=== PATIENT | female | born 1975 | race Caucasian/White ===

== ENCOUNTER 2017-01-07 13:40 | Observation (INO) | payer MEDICARE, MEDICAID ==
[~2017-01-07] VITALS: Ht 172.7 cm; Wt 61.2 kg
[2017-01-07] MEDS ORDERED: SODIUM CHLORIDE 0.9% 1,000 ML IVB ONE (15:40)
[2017-01-07 15:57] LABS: Basophils # (auto) 0 uL; Basophils % (auto) 0.2 % (0.0-2.0); Eosinophils # (auto) 0.1 uL; Eosinophils % (auto) 2.2 % (0.0-7.0); Hematocrit 38.5 % (36.0-46.0); Lymphocytes # (auto) 1.3 uL; Lymphocytes % (auto) 24.5 % (10.0-50.0); Mean Corpuscular Hemoglobin 31.5 pg (28.0-32.0); Mean Corpuscular Hgb Conc. 33.8 g/dL (32.0-36.0); Monocytes # (auto) 0.3 uL; Monocytes % (auto) 5.4 % (0.0-12.0); Neutrophils # (auto) 3.7 uL; Neutrophils % (auto) 67.7 % (37.0-80.0); Platelet Count (auto) 288 10^3/uL (140-450); Red Cell Distribution Width 13.9 % (11.6-16.0); White Blood Cell 5.5 10^3/uL (4.4-10.8)
[2017-01-07 16:32] LABS: Albumin 3.1 g/dL (3.4-5.0); BUN/Creatinine Ratio 14.7; Bilirubin, Total 0.2 mg/dL (0.2-1.0); Calcium 8.4 mg/dL (8.5-10.1); Magnesium 2.2 mg/dL (1.6-2.6); Potassium 3.1 mmol/L (3.5-5.1); Total Protein 7.4 g/dL (6.4-8.2)
[2017-01-07 18:00] LABS: Urine Bilirubin Negative (Negative); Urine Blood Negative /uL (Negative); Urine Color Yellow (Yellow); Urine Glucose Normal (Normal); Urine Ketone Negative (Negative); Urine Nitrite Negative (Negative); Urine RBC 3 /hpf (0 - 4); Urine Urobilinogen Normal (Negative); Urine WBC Clumps PRESENT /hpf (None Seen)
[2017-01-07] MEDS ORDERED: cefTRIAXone 1GM/50ML D5W 50 ML IV ONE (18:30)
[2017-01-07] MEDS ORDERED: ONDANSETRON HCL 4 MG/2 ML VIAL IV ONE (18:45)
[2017-01-07] MEDS ORDERED: HYDROmorphone HCL 2 MG/ML VL IV ONE (18:45)
[2017-01-07] MEDS ORDERED: diphenhdrAMINE HCL 50 MG/1 ML VL IV ONE (23:00)
[2017-01-07] MEDS ORDERED: HALOPERIDOL LACTATE 5 MG/ML INJ VIAL IM ONE (23:00)
[2017-01-07] MEDS ORDERED: LORazepam 2MG/ML-1ML VIAL IV ONE (23:00)
[2017-01-08 08:39] VITALS: BP 120/86
== END 2017-01-08 09:13 | disposition home or self-care (01) | DRG 914 ==
LOC: ER 13:40 → OVERFLOW 15:42 → ER 01-08 09:13
PROVIDERS: ADMIT Emergency Medicine; ATTEND Emergency Medicine
DX: T14.91 Suicide attempt (principal); N39.0 Urinary tract infection, site not specified; E44.1 Mild protein-calorie malnutrition; R41.82 Altered mental status, unspecified; F10.10 Alcohol abuse, uncomplicated; G89.4 Chronic pain syndrome; E87.6 Hypokalemia; E03.9 Hypothyroidism, unspecified
CPT/HCPCS: 36415; 70450; 71010; 80053; 80307; 80320; 81001; 83735; 84443; 85025; 93005; 96365; 96372; 96375; 99285; G0378; J0696; J1170; J1200; J1630; J2060; J2405; J7030

== ENCOUNTER 2017-04-12 22:04 | Emergency (ER) | payer OTHER, MEDICAID ==
[~2017-04-12] VITALS: Ht 177.8 cm; Wt 73.0 kg
[2017-04-12 22:25] VITALS: BP 134/87
[2017-04-13] MEDS ORDERED: OXYCODONE W/ ACETAMINOPHEN 5/325MG TABLET PO ONE (02:15)
== END 2017-04-13 02:56 | disposition home or self-care (01) ==
LOC: ER 22:19
DX: S92.351A Displaced fracture of fifth metatarsal bone, right foot, initial encounter for closed fracture (principal); S82.491A Other fracture of shaft of right fibula, initial encounter for closed fracture; Z88.8 Allergy status to other drugs, medicaments and biological substances; Z91.040 Latex allergy status; W19.XXXA Unspecified fall, initial encounter; Y93.89 Activity, other specified; Y99.8 Other external cause status; Y92.89 Other specified places as the place of occurrence of the external cause
CPT/HCPCS: 29515; 73600; 73620

== ENCOUNTER 2017-11-21 15:04 | Emergency (ER) | payer MEDICARE, MEDICAID ==
[~2017-11-21] VITALS: Ht 182.9 cm; Wt 72.6 kg
[2017-11-21] MEDS ORDERED: SODIUM CHLORIDE 0.9% 500 ML IVB ONE (15:37)
[2017-11-21] MEDS ORDERED: LORazepam 2MG/ML-1ML VIAL IV ONE (15:45)
[2017-11-21 16:04] LABS: Basophils # (auto) 0 uL; Basophils % (auto) 0.1 % (0.0-2.0); Eosinophils # (auto) 0.1 uL; Eosinophils % (auto) 3.1 % (0.0-7.0); Hematocrit 37.4 % (36.0-46.0); Hemoglobin 12.7 g/dL (12.2-16.2); Lymphocytes # (auto) 1.4 uL; Lymphocytes % (auto) 42.2 % (10.0-50.0); Mean Corpuscular Hemoglobin 33.8 pg (28.0-32.0); Mean Corpuscular Volume 99.5 fL (80.0-100.0); Monocytes # (auto) 0.3 uL; Monocytes % (auto) 8.6 % (0.0-12.0); Neutrophils # (auto) 1.6 uL; Platelet Count (auto) 158 10^3/uL (140-450); Red Blood Cells 3.75 10^6/uL (4.0-5.20); Red Cell Distribution Width 13.3 % (11.8-14.3); White Blood Cell 3.4 10^3/uL (4.4-10.8)
[2017-11-21 16:21] LABS: Albumin 3.6 g/dL (3.4-5.0); BUN/Creatinine Ratio 13.1; Bilirubin, Total 0.4 mg/dL (0.2-1.0); Potassium 3.8 mmol/L (3.5-5.1); Total Protein 7.5 g/dL (6.4-8.2)
[2017-11-21 16:55] LABS: Blood Alcohol < 3.0 mg/dL (0-5)
[2017-11-21] MEDS ORDERED: ASPI325T4 PO (22:38)
[2017-11-21] MEDS ORDERED: POTA10TA51 PO (22:38)
[2017-11-21] MEDS ORDERED: HYDR50TA69 PO (22:38)
[2017-11-21] MEDS ORDERED: LEVO200I5 IV (22:38)
[2017-11-21] MEDS ORDERED: FOLI1TAB6 PO (22:38)
[2017-11-21] MEDS ORDERED: LANS30CA63 PO (22:38)
[2017-11-21] MEDS ORDERED: FERR1TAB36 PO (22:38)
[2017-11-21] MEDS ORDERED: FLUT0.05 NAS (22:38)
[2017-11-21] MEDS ORDERED: HYDR200T OR (22:38)
[2017-11-21] MEDS ORDERED: ARTISOL13 EACHEYE (22:38)
[2017-11-22] MEDS ORDERED: MORPHINE SULFATE 4 MG/ML SYR/VIAL IV PRN (01:00)
[2017-11-22] MEDS ORDERED: ACETAMINOPHEN 500 MG TAB PO PRN (01:00)
[2017-11-22] MEDS ORDERED: HYDROcodone-ACET 5/325MG TAB PO PRN (01:00)
[2017-11-22] MEDS ORDERED: LORazepam 0.5 MG TAB PO PRN ×2 (01:00→03:15)
[2017-11-22 01:10] VITALS: BP 113/67
[2017-11-22] MEDS ORDERED: LEVOTHYROXINE SODIUM 50 MCG TAB PO SCH (07:00)
[2017-11-22] MEDS ORDERED: MONTELUKAST SODIUM 10 MG TAB PO SCH (22:00)
[2017-11-22] MEDS ORDERED: AMITRIPTYLINE HCL 25 MG TAB PO SCH (22:00)
== END 2017-11-22 02:27 | disposition left against medical advice (07) ==
LOC: ER 15:04 → EDBD 15:04 → UNDOADMIN 15:05 → OVERFLOW 15:05 → ER 11-22 02:27
DX: R41.82 Altered mental status, unspecified (principal); G89.4 Chronic pain syndrome; G93.2 Benign intracranial hypertension; F17.210 Nicotine dependence, cigarettes, uncomplicated; J44.9 Chronic obstructive pulmonary disease, unspecified; Z88.6 Allergy status to analgesic agent; Z91.040 Latex allergy status
CPT/HCPCS: 36415; 70450; 71045; 80053; 80320; 83735; 85025; 93005; 94761; 96361; 96374; 99285; J2060; J7030

== ENCOUNTER 2021-03-02 16:32 | Inpatient (IN) | payer MEDICARE, MEDICAID ==
[~2021-03-02] VITALS: Ht 154.9 cm; Wt 81.4 kg
[~2021-03-02 16:32] MED LIST: ARTISOL13 EACHEYE; ASPI325T4 PO; FERR1TAB36 PO; FLUT0.05 NAS; FOLI1TAB6 PO; HYDR-4188 OR; HYDR50TA69 PO; LANS30CA57 PO; LEVO200I5 IV; POTA10TA51 PO
[2021-03-02] MEDS ORDERED: LORazepam 2MG/ML-1ML VIAL IV ONE (16:45)
[2021-03-02] MEDS ORDERED: SODIUM CHLORIDE 0.9% 1,000 ML IV ONE ×2 (18:00)
[2021-03-02 18:48] LABS: Basophils # (auto) 0 10 ^3/uL (0-0.2); Basophils % (auto) 0.2 % (0.0-2.0); Eosinophils # (auto) 0 10 ^3/uL (0-0.8); Eosinophils % (auto) 0.3 % (0.0-7.0); Hematocrit 29.7 % (36.0-46.0); Hemoglobin 9.9 g/dL (12.2-16.2); Lymphocytes # (auto) 0.7 10 ^3/uL (0.4-5.4); Lymphocytes % (auto) 5.7 % (10.0-50.0); Mean Corpuscular Hemoglobin 31.9 pg (28.0-32.0); Mean Corpuscular Hgb Conc. 33.4 g/dL (32.0-36.0); Mean Corpuscular Volume 95.5 fL (80.0-100.0); Monocytes # (auto) 0.9 10 ^3/uL (0-1.3); Monocytes % (auto) 6.9 % (0.0-12.0); Neutrophils # (auto) 11.2 10 ^3/uL (1.6-8.6); Neutrophils % (auto) 86.9 % (37.0-80.0); Nucleated Red Blood Cells % 0.1 %; Red Cell Distribution Width 17.9 % (11.8-14.3); White Blood Cell 12.9 10^3/uL (4.4-10.8)
[2021-03-02 19:04] LABS: Albumin 2.6 g/dL (3.4-5.0); Anion Gap 7 (5-15); Blood Urea Nitrogen 12 mg/dL (7-18); Calcium 7.5 mg/dL (8.5-10.1); Carbon Dioxide 26 mmol/L (21-32); Chloride 102 mmol/L (98-107); Glucose 84 mg/dL (74-106); Sodium 135 mmol/L (136-145)
[2021-03-02 19:09] LABS: Alanine Aminotransferase 59 U/L (13-56); Alkaline Phosphatase 84 U/L (45-117); Aspartate Aminotransferase 130 U/L (15-37); BUN/Creatinine Ratio 16.9; Bilirubin, Total 0.8 mg/dL (0.2-1.0); GFR African American 114 mL/min; GFR Non-African American 94 mL/min; Total Protein 6.2 g/dL (6.4-8.2)
[2021-03-02] MEDS ORDERED: ACETAMINOPHEN 325 MG TAB PO ONE (20:15)
[2021-03-02] MEDS ORDERED: POTASSIUM CHL 20MEQ/100ML 100 ML IV STA (20:22)
[2021-03-02] MEDS ORDERED: ONDANSETRON HCL 4 MG/2 ML VIAL IV ONE (20:30)
[2021-03-02] MEDS ORDERED: cefTRIAXone 1GM/50ML D5W 50 ML IV ONE (20:30)
[2021-03-02] MEDS ORDERED: MORPHINE SULF INJ 2 MG/ML SYRINGE 1ML IV ONE (20:30)
[2021-03-02] MEDS ORDERED: VANCOMYCIN 1GM/250ML 250 ML IV ONE (20:30)
[2021-03-02] MEDS ORDERED: LACTATED RINGER'S 1,000 ML IV ONE (21:00)
[2021-03-02] MEDS: POTASSIUM CHL 20MEQ/100ML 100 ML IV SCH ×2 (21:22→23:15)
[2021-03-02] MEDS ORDERED: ONDANSETRON HCL 4 MG/2 ML VIAL IV PRN (21:45)
[2021-03-02] MEDS ORDERED: CALCIUM GLUC 1,000mg/50ml-NS 50 ML IV ONE (21:45)
[2021-03-02] MEDS ORDERED: ACETAMINOPHEN 325 MG TAB PO PRN (21:45)
[2021-03-02] MEDS ORDERED: NITROGLYCERIN 0.4 MG SL TAB SL PRN (21:45)
[2021-03-02] MEDS ORDERED: MORPHINE SULF INJ 2 MG/ML SYRINGE 1ML IV PRN (21:45)
[2021-03-02] MEDS ORDERED: ALBUTEROL SULF 2.5 MG/0.5ML(0.5%) NEB SOLN NEB PRN (21:45)
[2021-03-02] MEDS ORDERED: ALBUMIN 5% 250 ML IV ONE (21:45)
[2021-03-02 23:09] VITALS: BP 103/61
[2021-03-03] VITALS (7 sets, daily range): BP systolic 101–135; BP diastolic 62–89
[2021-03-03 00:22] LABS: Urine Bacteria FEW /hpf (None Seen); Urine Blood Negative /uL (Negative); Urine Specific Gravity 1.007 (1.001-1.035); Urine WBC 8 /hpf (0 - 5)
[2021-03-03 00:41] LABS: Amphetamine Screen, Urine NEGATIVE (NEGATIVE); Barbiturate Scree,Urine NEGATIVE (NEGATIVE); Benzodiazephine Screen, Urine NEGATIVE (NEGATIVE); Cannabinoid Screen, Urine NEGATIVE (NEGATIVE); Cocaine Screen, Urine NEGATIVE (NEGATIVE); Phencyclidine Screen, Urine NEGATIVE (NEGATIVE)
[2021-03-03 00:49] LABS: Opiate Scree,Urine POSITIVE (NEGATIVE)
[2021-03-03] MEDS: SODIUM CHLORIDE 0.9% 1,000 ML IV SCH ×3 (01:10→13:20)
[2021-03-03] MEDS: CLINDAMYCIN 600MG IV 50 ML IV SCH ×4 (06:00→22:08)
[2021-03-03] MEDS: LEVOTHYROXINE SODIUM 50 MCG TAB PO SCH (06:01)
[2021-03-03 06:11] LABS: Basophils # (auto) 0 10 ^3/uL (0-0.2); Eosinophils # (auto) 0.1 10 ^3/uL (0-0.8); Eosinophils % (auto) 0.7 % (0.0-7.0); Hematocrit 31.5 % (36.0-46.0); Hemoglobin 10.5 g/dL (12.2-16.2); Lymphocytes # (auto) 0.6 10 ^3/uL (0.4-5.4); Lymphocytes % (auto) 5.1 % (10.0-50.0); Mean Corpuscular Hemoglobin 31.6 pg (28.0-32.0); Mean Corpuscular Hgb Conc. 33.2 g/dL (32.0-36.0); Mean Corpuscular Volume 95.3 fL (80.0-100.0); Monocytes # (auto) 0.8 10 ^3/uL (0-1.3); Monocytes % (auto) 6.3 % (0.0-12.0); Neutrophils # (auto) 10.4 10 ^3/uL (1.6-8.6); Neutrophils % (auto) 87.9 % (37.0-80.0); Red Blood Cells 3.31 10^6/uL (4.0-5.20); Red Cell Distribution Width 17.5 % (11.8-14.3); White Blood Cell 11.9 10^3/uL (4.4-10.8)
[2021-03-03 06:37] LABS: Potassium 3.3 mmol/L (3.5-5.1)
[2021-03-03 06:44] LABS: BUN/Creatinine Ratio 17.7; Calcium 7.7 mg/dL (8.5-10.1)
[2021-03-03] MEDS: PANTOPRAZOLE 40 MG TAB PO SCH ×3 (09:28→11:48)
[2021-03-03] MEDS: ENOXAPARIN SOD 40 MG/0.4 ML SYRINGE SC SCH (09:28)
[2021-03-03] MEDS ORDERED: POTASSIUM CHL 20 Meq TABLET PO ONE (10:30)
[2021-03-03] MEDS ORDERED: MORPHINE SULF INJ 2 MG/ML SYRINGE 1ML IV ONE (11:30)
[2021-03-03] MEDS ORDERED: MORPHINE SULF 30 mg ER tab PO ONE (13:00)
[2021-03-03] MEDS ORDERED: ERTAPENEM SOD INJ 1 GM in SODIUM CHL 0.9% 50 ML IV ONE (13:30)
[2021-03-03] MEDS: TEMAZEPAM 15 MG CAP PO PRN (20:36)
[2021-03-03] MEDS ORDERED: cefTRIAXone 1GM/50ML D5W 50 ML IV SCH (21:00)
[2021-03-03] MEDS: MORPHINE SULF 30 mg ER tab PO SCH (22:08)
[2021-03-04] MEDS: SODIUM CHLORIDE 0.9% 1,000 ML IV SCH ×2 (00:25→05:03)
[2021-03-04 05:01] VITALS: BP 97/65
[2021-03-04 05:48] LABS: Basophils # (auto) 0 10 ^3/uL (0-0.2); Basophils % (auto) 0.1 % (0.0-2.0); Eosinophils # (auto) 0.2 10 ^3/uL (0-0.8); Eosinophils % (auto) 2.1 % (0.0-7.0); Hematocrit 30.3 % (36.0-46.0); Hemoglobin 10.2 g/dL (12.2-16.2); Lymphocytes # (auto) 0.9 10 ^3/uL (0.4-5.4); Lymphocytes % (auto) 11.2 % (10.0-50.0); Mean Corpuscular Hemoglobin 32.4 pg (28.0-32.0); Mean Corpuscular Hgb Conc. 33.6 g/dL (32.0-36.0); Mean Corpuscular Volume 96.5 fL (80.0-100.0); Monocytes # (auto) 0.4 10 ^3/uL (0-1.3); Monocytes % (auto) 5.5 % (0.0-12.0); Neutrophils # (auto) 6.6 10 ^3/uL (1.6-8.6); Neutrophils % (auto) 81.1 % (37.0-80.0); Red Blood Cells 3.14 10^6/uL (4.0-5.20); Red Cell Distribution Width 17.5 % (11.8-14.3); White Blood Cell 8.1 10^3/uL (4.4-10.8)
[2021-03-04] MEDS: CLINDAMYCIN 600MG IV 50 ML IV SCH ×3 (05:59→22:53)
[2021-03-04 06:08] LABS: Albumin 2.5 g/dL (3.4-5.0); Calcium 8.2 mg/dL (8.5-10.1); Magnesium 2.3 mg/dL (1.6-2.6); Potassium 3.6 mmol/L (3.5-5.1)
[2021-03-04 06:13] LABS: BUN/Creatinine Ratio 16.1; Bilirubin, Total 0.4 mg/dL (0.2-1.0); Total Protein 6.5 g/dL (6.4-8.2)
[2021-03-04] MEDS: LEVOTHYROXINE SODIUM 50 MCG TAB PO SCH (06:50)
[2021-03-04 09:00] VITALS: BP 106/76
[2021-03-04] MEDS ORDERED: ERTAPENEM SOD INJ 1 GM in SODIUM CHL 0.9% 50 ML IV SCH (10:00)
[2021-03-04] MEDS: MORPHINE SULF 30 mg ER tab PO SCH ×2 (10:10→23:58)
[2021-03-04] MEDS: ENOXAPARIN SOD 40 MG/0.4 ML SYRINGE SC SCH (10:10)
[2021-03-04 13:00] VITALS: BP 96/68
[2021-03-04] MEDS ORDERED: GADOTERATE MEG 10 MMOL/20ml INJ (0.5MMOL/ml) IV ONE (15:21)
[2021-03-04 17:28] VITALS: BP 101/73
[2021-03-04] MEDS: HYDROmorphone HCL 2 MG/ML VL IV PRN ×2 (18:38→21:45)
[2021-03-04] MEDS: CEFEPIME 1 GM in SODIUM CHL 0.9% 50 ML IV SCH (21:36)
[2021-03-04] MEDS: GABAPENTIN 300 MG CAP PO SCH (21:36)
[2021-03-04 22:00] VITALS: BP 118/73
[2021-03-05] VITALS (7 sets, daily range): BP systolic 93–144; BP diastolic 61–73
[2021-03-05] MEDS: HYDROmorphone HCL 2 MG/ML VL IV PRN ×4 (04:32→23:39)
[2021-03-05] MEDS: CLINDAMYCIN 600MG IV 50 ML IV SCH (04:54)
[2021-03-05] MEDS: GABAPENTIN 300 MG CAP PO SCH ×3 (06:17→21:38)
[2021-03-05] MEDS: CEFEPIME 1 GM in SODIUM CHL 0.9% 50 ML IV SCH (06:23)
[2021-03-05 06:29] LABS: Basophils # (auto) 0 10 ^3/uL (0-0.2); Basophils % (auto) 0.3 % (0.0-2.0); Eosinophils # (auto) 0.1 10 ^3/uL (0-0.8); Eosinophils % (auto) 2.2 % (0.0-7.0); Hematocrit 30.9 % (36.0-46.0); Hemoglobin 10.5 g/dL (12.2-16.2); Lymphocytes # (auto) 0.7 10 ^3/uL (0.4-5.4); Lymphocytes % (auto) 11.8 % (10.0-50.0); Mean Corpuscular Hemoglobin 32.4 pg (28.0-32.0); Mean Corpuscular Volume 95.4 fL (80.0-100.0); Monocytes # (auto) 0.6 10 ^3/uL (0-1.3); Monocytes % (auto) 9.6 % (0.0-12.0); Neutrophils # (auto) 4.4 10 ^3/uL (1.6-8.6); Neutrophils % (auto) 76.1 % (37.0-80.0); Red Blood Cells 3.23 10^6/uL (4.0-5.20); Red Cell Distribution Width 17.5 % (11.8-14.3); White Blood Cell 5.8 10^3/uL (4.4-10.8)
[2021-03-05] MEDS: LEVOTHYROXINE SODIUM 50 MCG TAB PO SCH (07:00)
[2021-03-05 07:06] LABS: Albumin 2.5 g/dL (3.4-5.0); Calcium 7.7 mg/dL (8.5-10.1); Magnesium 2.2 mg/dL (1.6-2.6); Potassium 3.6 mmol/L (3.5-5.1)
[2021-03-05 07:15] LABS: BUN/Creatinine Ratio 16.7; Bilirubin, Total 0.5 mg/dL (0.2-1.0); CRP High Sensitivity 9.45 mg/dL (< 0.3); Phosphorus 1.2 mg/dL (2.5-4.90); Total Protein 6.4 g/dL (6.4-8.2)
[2021-03-05] MEDS: AMPICILLIN & SULBACTAM SODIUM 3 GM in SODIUM CHL 0.9% 100 ML IV SCH ×3 (08:57→21:38)
[2021-03-05] MEDS: ENOXAPARIN SOD 40 MG/0.4 ML SYRINGE SC SCH (10:37)
[2021-03-05] MEDS: PANTOPRAZOLE 40 MG TAB PO SCH (10:37)
[2021-03-05] MEDS: MORPHINE SULF 30 mg ER tab PO SCH ×2 (10:37→21:38)
[2021-03-05] MEDS ORDERED: LORazepam 0.5 MG TAB PO ONE (12:30)
[2021-03-05] MEDS: HYDROcodone-ACET 10/325MG TAB PO PRN (18:04)
[2021-03-06] VITALS (7 sets, daily range): BP systolic 102–133; BP diastolic 65–92
[2021-03-06] MEDS: AMPICILLIN & SULBACTAM SODIUM 3 GM in SODIUM CHL 0.9% 100 ML IV SCH ×4 (03:17→21:03)
[2021-03-06] MEDS: HYDROmorphone HCL 2 MG/ML VL IV PRN ×5 (04:42→21:49)
[2021-03-06] MEDS: GABAPENTIN 300 MG CAP PO SCH ×3 (06:20→21:35)
[2021-03-06] MEDS: LEVOTHYROXINE SODIUM 50 MCG TAB PO SCH (06:21)
[2021-03-06] MEDS: PANTOPRAZOLE 40 MG TAB PO SCH (10:15)
[2021-03-06] MEDS: MORPHINE SULF 30 mg ER tab PO SCH (10:15)
[2021-03-06] MEDS: ENOXAPARIN SOD 40 MG/0.4 ML SYRINGE SC SCH (10:15)
[2021-03-06] MEDS: HYDROcodone-ACET 10/325MG TAB PO PRN (15:15)
[2021-03-07] VITALS (7 sets, daily range): BP systolic 101–136; BP diastolic 67–86
[2021-03-07] MEDS: MORPHINE SULF 30 mg ER tab PO SCH ×3 (02:55→21:35)
[2021-03-07] MEDS: AMPICILLIN & SULBACTAM SODIUM 3 GM in SODIUM CHL 0.9% 100 ML IV SCH ×4 (03:05→21:35)
[2021-03-07] MEDS: GABAPENTIN 300 MG CAP PO SCH ×3 (06:16→21:35)
[2021-03-07] MEDS: LEVOTHYROXINE SODIUM 50 MCG TAB PO SCH (06:16)
[2021-03-07] MEDS: HYDROmorphone HCL 2 MG/ML VL IV PRN ×6 (06:22→21:37)
[2021-03-07] MEDS: ENOXAPARIN SOD 40 MG/0.4 ML SYRINGE SC SCH (09:55)
[2021-03-07] MEDS: PANTOPRAZOLE 40 MG TAB PO SCH (09:55)
[2021-03-07] MEDS: TEMAZEPAM 15 MG CAP PO PRN (21:36)
[2021-03-08] MEDS: HYDROmorphone HCL 2 MG/ML VL IV PRN ×5 (00:40→21:35)
[2021-03-08] MEDS: AMPICILLIN & SULBACTAM SODIUM 3 GM in SODIUM CHL 0.9% 100 ML IV SCH ×3 (03:00→15:00)
[2021-03-08 05:00] VITALS: BP 99/64
[2021-03-08] MEDS: LEVOTHYROXINE SODIUM 50 MCG TAB PO SCH (06:04)
[2021-03-08] MEDS: GABAPENTIN 300 MG CAP PO SCH ×2 (06:04→13:57)
[2021-03-08 08:00] VITALS: BP 103/70
[2021-03-08 08:50] VITALS: BP 103/70
[2021-03-08] MEDS: ENOXAPARIN SOD 40 MG/0.4 ML SYRINGE SC SCH (11:29)
[2021-03-08] MEDS: MORPHINE SULF 30 mg ER tab PO SCH (11:30)
[2021-03-08] MEDS: PANTOPRAZOLE 40 MG TAB PO SCH (11:30)
[2021-03-08 12:36] VITALS: BP 110/72
[2021-03-08 16:47] VITALS: BP 104/73
[2021-03-08] MEDS: TEMAZEPAM 15 MG CAP PO PRN (21:36)
[2021-03-08 22:00] VITALS: BP 113/75
[2021-03-09] MEDS: GABAPENTIN 300 MG CAP PO SCH ×4 (00:18→21:12)
[2021-03-09] MEDS: AMPICILLIN & SULBACTAM SODIUM 3 GM in SODIUM CHL 0.9% 100 ML IV SCH ×4 (00:18→19:30)
[2021-03-09] MEDS: MORPHINE SULF 30 mg ER tab PO SCH ×3 (00:19→21:11)
[2021-03-09] MEDS: HYDROmorphone HCL 2 MG/ML VL IV PRN ×7 (01:05→22:05)
[2021-03-09 05:00] VITALS: BP 114/78
[2021-03-09] MEDS: LEVOTHYROXINE SODIUM 50 MCG TAB PO SCH (06:26)
[2021-03-09 08:00] VITALS: BP 106/79
[2021-03-09 09:00] VITALS: BP 106/79
[2021-03-09] MEDS ORDERED: LIDOCAINE 1% HCL (LOCAL ANESTH.) INJ 20ML MDV IJ ONE (11:15)
[2021-03-09] MEDS ORDERED: LORazepam 2MG/ML-1ML VIAL IV ONE (12:15)
[2021-03-09 13:11] VITALS: BP 134/44
[2021-03-09] MEDS: ENOXAPARIN SOD 40 MG/0.4 ML SYRINGE SC SCH (13:33)
[2021-03-09] MEDS: PANTOPRAZOLE 40 MG TAB PO SCH (13:33)
[2021-03-09 17:00] VITALS: BP 101/83
[2021-03-09 22:00] VITALS: BP 113/83
[2021-03-09] MEDS: TEMAZEPAM 15 MG CAP PO PRN (22:05)
[2021-03-10] MEDS: AMPICILLIN & SULBACTAM SODIUM 3 GM in SODIUM CHL 0.9% 100 ML IV SCH ×5 (00:27→23:04)
[2021-03-10] MEDS: HYDROmorphone HCL 2 MG/ML VL IV PRN ×6 (01:05→22:48)
[2021-03-10 05:00] VITALS: BP 115/67
[2021-03-10 05:52] LABS: Basophils # (auto) 0 10 ^3/uL (0-0.2); Basophils % (auto) 0.5 % (0.0-2.0); Eosinophils # (auto) 0.1 10 ^3/uL (0-0.8); Eosinophils % (auto) 2.9 % (0.0-7.0); Hematocrit 31.1 % (36.0-46.0); Hemoglobin 10.6 g/dL (12.2-16.2); Lymphocytes # (auto) 1.4 10 ^3/uL (0.4-5.4); Mean Corpuscular Hemoglobin 32.6 pg (28.0-32.0); Mean Corpuscular Hgb Conc. 33.9 g/dL (32.0-36.0); Monocytes # (auto) 0.4 10 ^3/uL (0-1.3); Monocytes % (auto) 9.3 % (0.0-12.0); Neutrophils # (auto) 2.1 10 ^3/uL (1.6-8.6); Neutrophils % (auto) 52.3 % (37.0-80.0); Red Blood Cells 3.24 10^6/uL (4.0-5.20); Red Cell Distribution Width 17.9 % (11.8-14.3)
[2021-03-10] MEDS: LEVOTHYROXINE SODIUM 50 MCG TAB PO SCH (06:10)
[2021-03-10] MEDS: GABAPENTIN 300 MG CAP PO SCH ×3 (06:10→19:46)
[2021-03-10 06:14] LABS: Albumin 2.6 g/dL (3.4-5.0); Calcium 8.6 mg/dL (8.5-10.1); Potassium 4.1 mmol/L (3.5-5.1)
[2021-03-10 06:26] LABS: BUN/Creatinine Ratio 13.2; Bilirubin, Total 0.2 mg/dL (0.2-1.0); CRP High Sensitivity 1.23 mg/dL (< 0.3); Total Protein 7.7 g/dL (6.4-8.2)
[2021-03-10 09:00] VITALS: BP 106/72
[2021-03-10] MEDS: PANTOPRAZOLE 40 MG TAB PO SCH (09:27)
[2021-03-10] MEDS: MORPHINE SULF 30 mg ER tab PO SCH ×2 (09:28→22:48)
[2021-03-10] MEDS: ENOXAPARIN SOD 40 MG/0.4 ML SYRINGE SC SCH (09:28)
[2021-03-10 13:00] VITALS: BP 127/77
[2021-03-10 17:00] VITALS: BP 127/94
[2021-03-10] MEDS: HYDROcodone-ACET 10/325MG TAB PO PRN (17:39)
[2021-03-10] MEDS: TEMAZEPAM 15 MG CAP PO PRN (19:46)
[2021-03-10 21:44] VITALS: BP 106/76
[2021-03-11 04:39] VITALS: BP 104/67
[2021-03-11] MEDS: AMPICILLIN & SULBACTAM SODIUM 3 GM in SODIUM CHL 0.9% 100 ML IV SCH ×5 (05:21→23:33)
[2021-03-11] MEDS: GABAPENTIN 300 MG CAP PO SCH ×3 (06:23→21:34)
[2021-03-11] MEDS: LEVOTHYROXINE SODIUM 50 MCG TAB PO SCH (06:23)
[2021-03-11] MEDS: HYDROmorphone HCL 2 MG/ML VL IV PRN ×4 (06:30→21:34)
[2021-03-11 09:00] VITALS: BP 102/64
[2021-03-11] MEDS: MORPHINE SULF 30 mg ER tab PO SCH ×2 (09:26→23:30)
[2021-03-11] MEDS: PANTOPRAZOLE 40 MG TAB PO SCH (09:26)
[2021-03-11] MEDS: ENOXAPARIN SOD 40 MG/0.4 ML SYRINGE SC SCH (09:26)
[2021-03-11 13:00] VITALS: BP 119/76
[2021-03-11 17:00] VITALS: BP 114/79
[2021-03-11 18:15] LABS: INR 0.95 (0.9-1.15)
[2021-03-11 20:00] VITALS: BP 107/69
[2021-03-11] MEDS: TEMAZEPAM 15 MG CAP PO PRN (21:33)
[2021-03-11 22:00] VITALS: BP 107/69
[2021-03-12] MEDS: HYDROmorphone HCL 2 MG/ML VL IV PRN ×4 (01:34→18:20)
[2021-03-12 05:00] VITALS: BP 105/64
[2021-03-12] MEDS: GABAPENTIN 300 MG CAP PO SCH ×3 (05:03→22:00)
[2021-03-12] MEDS: AMPICILLIN & SULBACTAM SODIUM 3 GM in SODIUM CHL 0.9% 100 ML IV SCH (05:04)
[2021-03-12] MEDS: LEVOTHYROXINE SODIUM 50 MCG TAB PO SCH (05:50)
[2021-03-12] MEDS ORDERED: VANCOMYCIN PER PHARMACY 0 MG IV SCH (08:00)
[2021-03-12] MEDS ORDERED: VANCOMYCIN 1GM/250ML 250 ML IV ONE (08:15)
[2021-03-12 08:45] VITALS: BP 120/82
[2021-03-12] MEDS: MORPHINE SULF 30 mg ER tab PO SCH ×2 (09:29→22:00)
[2021-03-12] MEDS: PANTOPRAZOLE 40 MG TAB PO SCH (09:29)
[2021-03-12] MEDS: ENOXAPARIN SOD 40 MG/0.4 ML SYRINGE SC SCH (09:30)
[2021-03-12 09:50] LABS: Basophils # (auto) 0 10 ^3/uL (0-0.2); Basophils % (auto) 0.3 % (0.0-2.0); Eosinophils # (auto) 0.1 10 ^3/uL (0-0.8); Eosinophils % (auto) 3.1 % (0.0-7.0); Hematocrit 32.1 % (36.0-46.0); Hemoglobin 10.9 g/dL (12.2-16.2); Lymphocytes # (auto) 1.3 10 ^3/uL (0.4-5.4); Lymphocytes % (auto) 33.5 % (10.0-50.0); Mean Corpuscular Hemoglobin 32.3 pg (28.0-32.0); Mean Corpuscular Hgb Conc. 33.9 g/dL (32.0-36.0); Mean Corpuscular Volume 95.2 fL (80.0-100.0); Monocytes # (auto) 0.2 10 ^3/uL (0-1.3); Monocytes % (auto) 6.3 % (0.0-12.0); Neutrophils # (auto) 2.2 10 ^3/uL (1.6-8.6); Neutrophils % (auto) 56.8 % (37.0-80.0); Red Blood Cells 3.37 10^6/uL (4.0-5.20); Red Cell Distribution Width 17.6 % (11.8-14.3); White Blood Cell 3.9 10^3/uL (4.4-10.8)
[2021-03-12 13:33] VITALS: BP 115/81
[2021-03-12] MEDS ORDERED: PIPERACILLIN-TAZOB 2.25GM 50 ML IV SCH (14:00)
[2021-03-12 16:24] VITALS: BP 108/79
[2021-03-12 20:00] VITALS: BP 107/78
[2021-03-12 22:00] VITALS: BP 107/78
[2021-03-13 05:32] VITALS: BP 106/74
[2021-03-13] MEDS: GABAPENTIN 300 MG CAP PO SCH ×3 (05:57→22:50)
[2021-03-13] MEDS: LEVOTHYROXINE SODIUM 50 MCG TAB PO SCH (06:01)
[2021-03-13 06:31] LABS: Basophils # (auto) 0 10 ^3/uL (0-0.2); Basophils % (auto) 0.2 % (0.0-2.0); Eosinophils # (auto) 0.1 10 ^3/uL (0-0.8); Eosinophils % (auto) 3.4 % (0.0-7.0); Hematocrit 31.8 % (36.0-46.0); Hemoglobin 10.6 g/dL (12.2-16.2); Lymphocytes # (auto) 1.3 10 ^3/uL (0.4-5.4); Lymphocytes % (auto) 37.5 % (10.0-50.0); Mean Corpuscular Hemoglobin 32.1 pg (28.0-32.0); Mean Corpuscular Hgb Conc. 33.3 g/dL (32.0-36.0); Mean Corpuscular Volume 96.5 fL (80.0-100.0); Monocytes # (auto) 0.3 10 ^3/uL (0-1.3); Neutrophils # (auto) 1.8 10 ^3/uL (1.6-8.6); Neutrophils % (auto) 49.9 % (37.0-80.0); Nucleated Red Blood Cells % 0.1 %; Red Cell Distribution Width 17.7 % (11.8-14.3); White Blood Cell 3.6 10^3/uL (4.4-10.8)
[2021-03-13 06:47] LABS: Calcium 8.7 mg/dL (8.5-10.1); Potassium 3.9 mmol/L (3.5-5.1)
[2021-03-13 06:49] LABS: BUN/Creatinine Ratio 11.3
[2021-03-13 09:00] VITALS: BP 111/81
[2021-03-13] MEDS: ENOXAPARIN SOD 40 MG/0.4 ML SYRINGE SC SCH (09:26)
[2021-03-13] MEDS: PANTOPRAZOLE 40 MG TAB PO SCH (09:26)
[2021-03-13] MEDS: HYDROmorphone HCL 2 MG/ML VL IV PRN ×4 (09:27→21:35)
[2021-03-13] MEDS: MORPHINE SULF 30 mg ER tab PO SCH ×2 (10:00→22:50)
[2021-03-13 13:09] VITALS: BP 131/83
[2021-03-13] MEDS: VANCOMYCIN 1GM/250ML 250 ML IV SCH ×2 (13:44)
[2021-03-13 16:53] VITALS: BP 98/69
[2021-03-13 22:00] VITALS: BP 126/79
[2021-03-13] MEDS: TEMAZEPAM 15 MG CAP PO PRN (22:20)
[2021-03-14] MEDS: VANCOMYCIN 1GM/250ML 250 ML IV SCH ×2 (03:21→18:03)
[2021-03-14] MEDS: HYDROmorphone HCL 2 MG/ML VL IV PRN ×6 (03:30→21:24)
[2021-03-14 05:00] VITALS: BP 103/73
[2021-03-14] MEDS: LEVOTHYROXINE SODIUM 50 MCG TAB PO SCH (06:36)
[2021-03-14] MEDS: GABAPENTIN 300 MG CAP PO SCH ×3 (06:36→22:35)
[2021-03-14 09:00] VITALS: BP 108/73
[2021-03-14] MEDS: MORPHINE SULF 30 mg ER tab PO SCH ×2 (09:23→22:35)
[2021-03-14] MEDS: PANTOPRAZOLE 40 MG TAB PO SCH (09:23)
[2021-03-14] MEDS: ENOXAPARIN SOD 40 MG/0.4 ML SYRINGE SC SCH (09:23)
[2021-03-14 13:00] VITALS: BP 101/67
[2021-03-14 22:00] VITALS: BP 125/86
[2021-03-14] MEDS: TEMAZEPAM 15 MG CAP PO PRN (23:34)
[2021-03-15 05:00] VITALS: BP 120/89
[2021-03-15] MEDS: LEVOTHYROXINE SODIUM 50 MCG TAB PO SCH (06:32)
[2021-03-15] MEDS: GABAPENTIN 300 MG CAP PO SCH ×3 (06:32→21:04)
[2021-03-15] MEDS: HYDROmorphone HCL 2 MG/ML VL IV PRN ×4 (06:33→21:09)
[2021-03-15] MEDS: VANCOMYCIN 1GM/250ML 250 ML IV SCH ×2 (08:45→21:13)
[2021-03-15] MEDS: PANTOPRAZOLE 40 MG TAB PO SCH (08:46)
[2021-03-15] MEDS: ENOXAPARIN SOD 40 MG/0.4 ML SYRINGE SC SCH (08:46)
[2021-03-15 09:00] VITALS: BP 113/75
[2021-03-15] MEDS: MORPHINE SULF 30 mg ER tab PO SCH ×2 (12:40→21:04)
[2021-03-15 13:00] VITALS: BP 116/82
[2021-03-15 17:00] VITALS: BP 102/81
[2021-03-15] MEDS: TEMAZEPAM 15 MG CAP PO PRN (21:07)
[2021-03-15 22:20] VITALS: BP 105/77
[2021-03-16] MEDS: HYDROmorphone HCL 2 MG/ML VL IV PRN ×4 (03:47→21:26)
[2021-03-16 05:28] VITALS: BP 99/73
[2021-03-16] MEDS: GABAPENTIN 300 MG CAP PO SCH ×3 (06:04→21:25)
[2021-03-16] MEDS: LEVOTHYROXINE SODIUM 50 MCG TAB PO SCH (06:04)
[2021-03-16 06:26] LABS: Basophils # (auto) 0 10 ^3/uL (0-0.2); Basophils % (auto) 0.4 % (0.0-2.0); Eosinophils # (auto) 0.1 10 ^3/uL (0-0.8); Eosinophils % (auto) 4.9 % (0.0-7.0); Hematocrit 31.7 % (36.0-46.0); Hemoglobin 10.7 g/dL (12.2-16.2); Lymphocytes # (auto) 1.1 10 ^3/uL (0.4-5.4); Lymphocytes % (auto) 38.3 % (10.0-50.0); Mean Corpuscular Hemoglobin 32.3 pg (28.0-32.0); Mean Corpuscular Hgb Conc. 33.7 g/dL (32.0-36.0); Mean Corpuscular Volume 95.8 fL (80.0-100.0); Monocytes # (auto) 0.5 10 ^3/uL (0-1.3); Monocytes % (auto) 15.5 % (0.0-12.0); Neutrophils # (auto) 1.2 10 ^3/uL (1.6-8.6); Neutrophils % (auto) 40.9 % (37.0-80.0); Nucleated Red Blood Cells % 0.1 %; Red Blood Cells 3.31 10^6/uL (4.0-5.20); Red Cell Distribution Width 17.4 % (11.8-14.3); White Blood Cell 2.9 10^3/uL (4.4-10.8)
[2021-03-16 06:44] LABS: Potassium 4.3 mmol/L (3.5-5.1)
[2021-03-16 06:50] LABS: BUN/Creatinine Ratio 13.2; CRP High Sensitivity 0.32 mg/dL (< 0.3); Calcium 8.6 mg/dL (8.5-10.1)
[2021-03-16] MEDS: PANTOPRAZOLE 40 MG TAB PO SCH (08:05)
[2021-03-16] MEDS: ENOXAPARIN SOD 40 MG/0.4 ML SYRINGE SC SCH (08:05)
[2021-03-16 09:00] VITALS: BP 105/75
[2021-03-16] MEDS: MORPHINE SULF 30 mg ER tab PO SCH ×2 (10:32→21:26)
[2021-03-16] MEDS: VANCOMYCIN 1GM/250ML 250 ML IV SCH (12:06)
[2021-03-16 12:42] VITALS: BP 102/75
[2021-03-16 17:15] VITALS: BP 107/67
[2021-03-16 22:00] VITALS: BP 110/68
[2021-03-16] MEDS: TEMAZEPAM 15 MG CAP PO PRN (22:11)
[2021-03-17] MEDS: VANCOMYCIN 1GM/250ML 250 ML IV SCH ×2 (01:15→16:01)
[2021-03-17] MEDS: HYDROmorphone HCL 2 MG/ML VL IV PRN ×7 (01:16→22:17)
[2021-03-17 05:00] VITALS: BP 100/68
[2021-03-17] MEDS: GABAPENTIN 300 MG CAP PO SCH ×3 (06:05→22:16)
[2021-03-17] MEDS: LEVOTHYROXINE SODIUM 50 MCG TAB PO SCH (06:06)
[2021-03-17 09:00] VITALS: BP 97/69
[2021-03-17] MEDS: ENOXAPARIN SOD 40 MG/0.4 ML SYRINGE SC SCH (10:10)
[2021-03-17] MEDS: PANTOPRAZOLE 40 MG TAB PO SCH (10:11)
[2021-03-17] MEDS: MORPHINE SULF 30 mg ER tab PO SCH ×2 (12:39→22:16)
[2021-03-17 13:00] VITALS: BP 120/86
[2021-03-17 16:59] VITALS: BP 93/62
[2021-03-17 18:09] VITALS: BP 118/71
[2021-03-17 22:15] VITALS: BP 104/68
[2021-03-17] MEDS: TEMAZEPAM 15 MG CAP PO PRN (22:17)
[2021-03-18] MEDS: HYDROmorphone HCL 2 MG/ML VL IV PRN ×5 (02:43→21:32)
[2021-03-18] MEDS: VANCOMYCIN 1GM/250ML 250 ML IV SCH ×2 (05:21→20:40)
[2021-03-18] MEDS: LEVOTHYROXINE SODIUM 50 MCG TAB PO SCH (05:23)
[2021-03-18] MEDS: GABAPENTIN 300 MG CAP PO SCH ×3 (05:23→21:32)
[2021-03-18 05:30] VITALS: BP 128/70
[2021-03-18 08:53] VITALS: BP 115/73
[2021-03-18] MEDS: PANTOPRAZOLE 40 MG TAB PO SCH (09:54)
[2021-03-18] MEDS: ENOXAPARIN SOD 40 MG/0.4 ML SYRINGE SC SCH (09:54)
[2021-03-18] MEDS ORDERED: HYDROcodone-ACET 10/325MG TAB PO PRN (12:15)
[2021-03-18] MEDS: MORPHINE SULF 30 mg ER tab PO SCH (12:30)
[2021-03-18 13:00] VITALS: BP 136/82
[2021-03-18 15:34] LABS: Partial Thromboplastin Time 27.3 sec (23.6-33.0)
[2021-03-18 16:36] VITALS: BP 132/74
[2021-03-18 22:00] VITALS: BP 155/90
[2021-03-19] MEDS: HYDROmorphone HCL 2 MG/ML VL IV PRN ×4 (00:38→14:43)
[2021-03-19] MEDS: TEMAZEPAM 15 MG CAP PO PRN (00:38)
[2021-03-19] MEDS: MORPHINE SULF 30 mg ER tab PO SCH ×2 (00:38→10:15)
[2021-03-19 05:00] VITALS: BP 141/84
[2021-03-19] MEDS: LEVOTHYROXINE SODIUM 50 MCG TAB PO SCH (06:05)
[2021-03-19] MEDS: GABAPENTIN 300 MG CAP PO SCH ×2 (06:05→14:00)
[2021-03-19 07:01] LABS: Basophils # (auto) 0 10 ^3/uL (0-0.2); Basophils % (auto) 0.6 % (0.0-2.0); Eosinophils # (auto) 0.1 10 ^3/uL (0-0.8); Eosinophils % (auto) 4.3 % (0.0-7.0); Hematocrit 33.7 % (36.0-46.0); Hemoglobin 11.3 g/dL (12.2-16.2); Lymphocytes # (auto) 1.5 10 ^3/uL (0.4-5.4); Lymphocytes % (auto) 47.6 % (10.0-50.0); Mean Corpuscular Hemoglobin 31.7 pg (28.0-32.0); Mean Corpuscular Hgb Conc. 33.6 g/dL (32.0-36.0); Mean Corpuscular Volume 94.3 fL (80.0-100.0); Monocytes # (auto) 0.4 10 ^3/uL (0-1.3); Monocytes % (auto) 13.9 % (0.0-12.0); Neutrophils # (auto) 1.1 10 ^3/uL (1.6-8.6); Neutrophils % (auto) 33.6 % (37.0-80.0); Nucleated Red Blood Cells % 0.2 %; Red Blood Cells 3.57 10^6/uL (4.0-5.20); Red Cell Distribution Width 16.7 % (11.8-14.3); White Blood Cell 3.1 10^3/uL (4.4-10.8)
[2021-03-19 07:21] LABS: Calcium 8.8 mg/dL (8.5-10.1)
[2021-03-19 07:24] LABS: BUN/Creatinine Ratio 14.3; Magnesium 2.2 mg/dL (1.6-2.6)
[2021-03-19 09:00] VITALS: BP 117/56
[2021-03-19] MEDS: ENOXAPARIN SOD 40 MG/0.4 ML SYRINGE SC SCH (10:15)
[2021-03-19] MEDS: VANCOMYCIN 1GM/250ML 250 ML IV SCH (10:15)
[2021-03-19] MEDS: PANTOPRAZOLE 40 MG TAB PO SCH (10:15)
[2021-03-19 12:43] VITALS: BP 142/83
[2021-03-19 16:02] VITALS: BP 123/55
[2021-03-19 16:44] VITALS: BP 155/97
== END 2021-03-19 19:57 | DRG 872 ==
LOC: EDBD 16:32 → ER 16:32 → TELE 21:41 → TELE-CENTR 23:38 → CENTRAL 03-03 12:00
PROVIDERS: ADMIT Nurse Practitioner; ATTEND Internal Medicine
PROC: 0RJM3ZZ Inspection of Left Elbow Joint, Percutaneous Approach (ICD-10-PCS; principal; 2021-03-15)
PROC: BP4HZZZ Ultrasonography of Left Elbow (ICD-10-PCS; 2021-03-15)
PROC: 05HD33Z Insertion of Infusion Device into Right Cephalic Vein, Percutaneous Approach (ICD-10-PCS; 2021-03-18)
PROC: B54MZZA Ultrasonography of Right Upper Extremity Veins, Guidance (ICD-10-PCS; 2021-03-18)
DX: A41.9 Sepsis, unspecified organism (principal); L03.114 Cellulitis of left upper limb; E44.0 Moderate protein-calorie malnutrition; G89.4 Chronic pain syndrome; S50.02XA Contusion of left elbow, initial encounter; W01.0XXA Fall on same level from slipping, tripping and stumbling without subsequent striking against object, initial encounter; J44.9 Chronic obstructive pulmonary disease, unspecified; F17.210 Nicotine dependence, cigarettes, uncomplicated; Z66 Do not resuscitate; M70.22 Olecranon bursitis, left elbow; Z20.822 Contact with and (suspected) exposure to COVID-19; Z53.20 Procedure and treatment not carried out because of patient's decision for unspecified reasons; F32.9 Major depressive disorder, single episode, unspecified; G40.909 Epilepsy, unspecified, not intractable, without status epilepticus; Y99.8 Other external cause status; Y93.89 Activity, other specified; Z88.8 Allergy status to other drugs, medicaments and biological substances; Z91.040 Latex allergy status; Z71.6 Tobacco abuse counseling; Q07.00 Arnold-Chiari syndrome without spina bifida or hydrocephalus; Z68.36 Body mass index [BMI] 36.0-36.9, adult; Z98.84 Bariatric surgery status; Y92.098 Other place in other non-institutional residence as the place of occurrence of the external cause
CPT/HCPCS: 36415; 71045; 73060; 73090; 73200; 73223; 76942; 80048; 80053; 80202; 80307; 81001; 82565; 83605; 83735; 84100; 84443; 84484; 85025; 85048; 85610; 85652; 85730; 86141; 87040; 87070; 87075; 87081; 87205; 87426; 93971; 94002; 96361; 96365; 96366; 96368; 96375; 97110; 97116; 97163; 97530; G0378; J0696; J1335; J2001; J2405; J3480; J3490

== ENCOUNTER 2021-04-01 14:17 | Inpatient (IN) | payer MEDICARE, MEDICAID ==
[~2021-04-01] VITALS: Ht 154.9 cm; Wt 84.0 kg
[2021-04-01 17:31] LABS: Basophils # (auto) 0 10 ^3/uL (0-0.2); Basophils % (auto) 0.2 % (0.0-2.0); Eosinophils # (auto) 0.2 10 ^3/uL (0-0.8); Eosinophils % (auto) 4.4 % (0.0-7.0); Hematocrit 34.4 % (36.0-46.0); Hemoglobin 11.5 g/dL (12.2-16.2); Lymphocytes # (auto) 1.5 10 ^3/uL (0.4-5.4); Mean Corpuscular Hemoglobin 31.1 pg (28.0-32.0); Mean Corpuscular Hgb Conc. 33.5 g/dL (32.0-36.0); Monocytes # (auto) 0.4 10 ^3/uL (0-1.3); Monocytes % (auto) 9.3 % (0.0-12.0); Neutrophils # (auto) 1.7 10 ^3/uL (1.6-8.6); Neutrophils % (auto) 46.1 % (37.0-80.0); Nucleated Red Blood Cells % 0.1 %; White Blood Cell 3.8 10^3/uL (4.4-10.8)
[2021-04-01 17:43] LABS: INR 1.01 (0.9-1.15); Partial Thromboplastin Time 25.4 sec (23.6-33.0)
[2021-04-01] MEDS ORDERED: VANCOMYCIN PER PHARMACY 0 MG IV SCH (17:45)
[2021-04-01 17:47] LABS: Albumin 3.1 g/dL (3.4-5.0); BUN/Creatinine Ratio 8.6; Calcium 7.8 mg/dL (8.5-10.1); Potassium 3.5 mmol/L (3.5-5.1)
[2021-04-01 17:51] LABS: Bilirubin, Total 0.4 mg/dL (0.2-1.0); Lactic Acid w/Reflex 2.6 mmol/L (0.4-2.0); Total Protein 7.9 g/dL (6.4-8.2)
[2021-04-01] MEDS: VANCOMYCIN 1GM/250ML 250 ML IV SCH (20:41)
[2021-04-01] MEDS ORDERED: ACETAMINOPHEN 325 MG TAB PO PRN (21:30)
[2021-04-01] MEDS ORDERED: ALBUTEROL SULF 2.5 MG/0.5ML(0.5%) NEB SOLN NEB PRN (21:30)
[2021-04-01] MEDS ORDERED: ONDANSETRON HCL 4 MG/2 ML VIAL IV PRN (21:30)
[2021-04-01] MEDS ORDERED: SODIUM CHLORIDE 0.9% 1,000 ML IV ONE (21:30)
[2021-04-01] MEDS ORDERED: HYDROcodone-ACET 5/325MG TAB PO PRN (21:30)
[2021-04-01] MEDS ORDERED: diphenhdrAMINE HCL 25 MG CAP PO ONE (22:30)
[2021-04-01] MEDS: MONTELUKAST SODIUM 10 MG TAB PO SCH (22:40)
[2021-04-01] MEDS: CLINDAMYCIN 600MG IV 50 ML IV SCH (22:41)
[2021-04-01] MEDS: MORPHINE SULFATE 4 MG/ML SYR/VIAL IV PRN (23:00)
[2021-04-02 05:07] LABS: Basophils # (auto) 0 10 ^3/uL (0-0.2); Basophils % (auto) 0.3 % (0.0-2.0); Eosinophils # (auto) 0.2 10 ^3/uL (0-0.8); Eosinophils % (auto) 5.5 % (0.0-7.0); Hematocrit 35.8 % (36.0-46.0); Hemoglobin 11.8 g/dL (12.2-16.2); Lymphocytes # (auto) 1.2 10 ^3/uL (0.4-5.4); Lymphocytes % (auto) 33.6 % (10.0-50.0); Mean Corpuscular Hemoglobin 30.9 pg (28.0-32.0); Mean Corpuscular Volume 93.8 fL (80.0-100.0); Monocytes # (auto) 0.4 10 ^3/uL (0-1.3); Monocytes % (auto) 10.6 % (0.0-12.0); Neutrophils # (auto) 1.7 10 ^3/uL (1.6-8.6); Red Blood Cells 3.82 10^6/uL (4.0-5.20); Red Cell Distribution Width 16.6 % (11.8-14.3); White Blood Cell 3.5 10^3/uL (4.4-10.8)
[2021-04-02] MEDS: CLINDAMYCIN 600MG IV 50 ML IV SCH ×3 (06:11→20:51)
[2021-04-02] MEDS: MORPHINE SULFATE 4 MG/ML SYR/VIAL IV PRN (06:59)
[2021-04-02] MEDS: VANCOMYCIN 1GM/250ML 250 ML IV SCH (07:00)
[2021-04-02 07:12] LABS: BUN/Creatinine Ratio 9.2; Potassium 4.2 mmol/L (3.5-5.1)
[2021-04-02] MEDS: LEVOTHYROXINE SODIUM 50 MCG TAB PO SCH (08:43)
[2021-04-02] MEDS: cefTRIAXone 1GM/50ML D5W 50 ML IV SCH (08:44)
[2021-04-02] MEDS: PANTOPRAZOLE 40 MG TAB PO SCH (08:44)
[2021-04-02] MEDS: ENOXAPARIN SOD 40 MG/0.4 ML SYRINGE SC SCH (08:44)
[2021-04-02] MEDS ORDERED: ARTIFICIAL TEARS 15ml EACHEYE PRN (13:30)
[2021-04-02 16:53] VITALS: BP 124/79
[2021-04-02 18:03] VITALS: BP 124/79
[2021-04-02] MEDS: MORPHINE SULFATE INJECTION 2 MG/ML SYRG IV PRN ×2 (18:25→23:01)
[2021-04-02] MEDS: FERROUS SULFATE 325mg EC TAB PO SCH (18:25)
[2021-04-02] MEDS: MONTELUKAST SODIUM 10 MG TAB PO SCH (21:46)
[2021-04-02] MEDS: hydrOXYzine 25 MG TAB or CAP PO SCH (21:47)
[2021-04-02] MEDS: TEMAZEPAM 15 MG CAP PO PRN (21:48)
[2021-04-02] MEDS: hydrOXYchloroQUINE SULFATE 200 MG TAB PO SCH (21:49)
[2021-04-02 22:00] VITALS: BP 134/92
[2021-04-02] MEDS ORDERED: FLUTICASONE PROP NASAL SPR 0.05 % (50MCG) 16GM EACHNOSTRI SCH (22:00)
[2021-04-03] VITALS (7 sets, daily range): BP systolic 114–155; BP diastolic 75–108
[2021-04-03] MEDS: CLINDAMYCIN 600MG IV 50 ML IV SCH ×4 (04:59→21:01)
[2021-04-03] MEDS: LEVOTHYROXINE SODIUM 50 MCG TAB PO SCH (05:15)
[2021-04-03 07:48] LABS: Basophils # (auto) 0 10 ^3/uL (0-0.2); Basophils % (auto) 0.2 % (0.0-2.0); Eosinophils # (auto) 0.3 10 ^3/uL (0-0.8); Eosinophils % (auto) 8.1 % (0.0-7.0); Hematocrit 33.9 % (36.0-46.0); Hemoglobin 11.4 g/dL (12.2-16.2); Lymphocytes # (auto) 1.3 10 ^3/uL (0.4-5.4); Lymphocytes % (auto) 34.5 % (10.0-50.0); Mean Corpuscular Hemoglobin 31.4 pg (28.0-32.0); Mean Corpuscular Hgb Conc. 33.5 g/dL (32.0-36.0); Mean Corpuscular Volume 93.5 fL (80.0-100.0); Monocytes # (auto) 0.4 10 ^3/uL (0-1.3); Monocytes % (auto) 10.4 % (0.0-12.0); Neutrophils # (auto) 1.7 10 ^3/uL (1.6-8.6); Neutrophils % (auto) 46.8 % (37.0-80.0); Nucleated Red Blood Cells % 0.4 %; Red Blood Cells 3.63 10^6/uL (4.0-5.20); White Blood Cell 3.7 10^3/uL (4.4-10.8)
[2021-04-03 08:06] LABS: Potassium 3.4 mmol/L (3.5-5.1)
[2021-04-03 08:16] LABS: Albumin 2.5 g/dL (3.4-5.0); BUN/Creatinine Ratio 12.7; Bilirubin, Total 0.5 mg/dL (0.2-1.0); Total Protein 6.7 g/dL (6.4-8.2)
[2021-04-03] MEDS: MORPHINE SULFATE INJECTION 2 MG/ML SYRG IV PRN ×4 (09:07→22:21)
[2021-04-03] MEDS: FERROUS SULFATE 325mg EC TAB PO SCH ×2 (09:14→18:21)
[2021-04-03] MEDS: FOLIC ACID 1 MG TAB PO SCH (09:14)
[2021-04-03] MEDS: ENOXAPARIN SOD 40 MG/0.4 ML SYRINGE SC SCH (09:15)
[2021-04-03] MEDS: ASPirin-EC 325mg tab PO SCH (09:15)
[2021-04-03] MEDS: PANTOPRAZOLE 40 MG TAB PO SCH (09:15)
[2021-04-03] MEDS: POTASSIUM CHL 10 Meq TABLET PO SCH (09:16)
[2021-04-03] MEDS: hydrOXYchloroQUINE SULFATE 200 MG TAB PO SCH ×3 (09:16→22:20)
[2021-04-03] MEDS: cefTRIAXone 1GM/50ML D5W 50 ML IV SCH (10:55)
[2021-04-03] MEDS ORDERED: ALBUTEROL SULF 2.5 MG/0.5ML(0.5%) NEB SOLN NEB PRN (19:30)
[2021-04-03] MEDS: TEMAZEPAM 15 MG CAP PO PRN (21:01)
[2021-04-03] MEDS: MONTELUKAST SODIUM 10 MG TAB PO SCH (22:20)
[2021-04-03] MEDS: hydrOXYzine 25 MG TAB or CAP PO SCH (22:20)
[2021-04-04] MEDS: CLINDAMYCIN 600MG IV 50 ML IV SCH ×4 (02:23→20:45)
[2021-04-04] MEDS: MORPHINE SULFATE INJECTION 2 MG/ML SYRG IV PRN ×5 (02:24→19:39)
[2021-04-04 05:31] VITALS: BP 97/66
[2021-04-04] MEDS: LEVOTHYROXINE SODIUM 50 MCG TAB PO SCH (06:28)
[2021-04-04 07:07] LABS: Basophils # (auto) 0 10 ^3/uL (0-0.2); Basophils % (auto) 0.2 % (0.0-2.0); Eosinophils # (auto) 0.3 10 ^3/uL (0-0.8); Eosinophils % (auto) 9.1 % (0.0-7.0); Hematocrit 34.2 % (36.0-46.0); Hemoglobin 11.3 g/dL (12.2-16.2); Lymphocytes # (auto) 1.5 10 ^3/uL (0.4-5.4); Lymphocytes % (auto) 45.7 % (10.0-50.0); Mean Corpuscular Hemoglobin 30.7 pg (28.0-32.0); Mean Corpuscular Hgb Conc. 33.1 g/dL (32.0-36.0); Mean Corpuscular Volume 92.7 fL (80.0-100.0); Monocytes # (auto) 0.4 10 ^3/uL (0-1.3); Neutrophils # (auto) 1.1 10 ^3/uL (1.6-8.6); Nucleated Red Blood Cells % 0.1 %; Red Blood Cells 3.68 10^6/uL (4.0-5.20); White Blood Cell 3.2 10^3/uL (4.4-10.8)
[2021-04-04 07:25] LABS: Albumin 2.5 g/dL (3.4-5.0); Calcium 8.1 mg/dL (8.5-10.1); Potassium 3.9 mmol/L (3.5-5.1)
[2021-04-04 07:31] LABS: BUN/Creatinine Ratio 12.5; Bilirubin, Total 0.4 mg/dL (0.2-1.0); Total Protein 6.6 g/dL (6.4-8.2)
[2021-04-04 08:00] VITALS: BP 105/73
[2021-04-04 09:00] VITALS: BP 105/73
[2021-04-04] MEDS: POTASSIUM CHL 10 Meq TABLET PO SCH (09:35)
[2021-04-04] MEDS: ASPirin-EC 325mg tab PO SCH (09:35)
[2021-04-04] MEDS: PANTOPRAZOLE 40 MG TAB PO SCH (09:36)
[2021-04-04] MEDS: hydrOXYchloroQUINE SULFATE 200 MG TAB PO SCH ×2 (09:36→22:00)
[2021-04-04] MEDS: FERROUS SULFATE 325mg EC TAB PO SCH ×2 (09:36→18:00)
[2021-04-04] MEDS: ENOXAPARIN SOD 40 MG/0.4 ML SYRINGE SC SCH (09:36)
[2021-04-04] MEDS: FOLIC ACID 1 MG TAB PO SCH (09:36)
[2021-04-04] MEDS: cefTRIAXone 1GM/50ML D5W 50 ML IV SCH (10:57)
[2021-04-04 13:00] VITALS: BP 100/58
[2021-04-04] MEDS ORDERED: MORPHINE SULFATE INJECTION 2 MG/ML SYRG IV PRN (16:15)
[2021-04-04 17:00] VITALS: BP 108/75
[2021-04-04 22:00] VITALS: BP 112/62
[2021-04-04] MEDS: TEMAZEPAM 15 MG CAP PO PRN (22:10)
[2021-04-04] MEDS: MONTELUKAST SODIUM 10 MG TAB PO SCH (22:10)
[2021-04-04] MEDS: hydrOXYzine 25 MG TAB or CAP PO SCH (22:10)
[2021-04-05] MEDS: MORPHINE SULFATE INJECTION 2 MG/ML SYRG IV PRN ×6 (00:04→22:10)
[2021-04-05] MEDS: CLINDAMYCIN 600MG IV 50 ML IV SCH ×4 (01:25→20:17)
[2021-04-05 04:49] VITALS: BP 103/66
[2021-04-05 05:24] LABS: Basophils # (auto) 0 10 ^3/uL (0-0.2); Basophils % (auto) 0.5 % (0.0-2.0); Eosinophils # (auto) 0.4 10 ^3/uL (0-0.8); Eosinophils % (auto) 9.4 % (0.0-7.0); Hematocrit 33.9 % (36.0-46.0); Hemoglobin 11.3 g/dL (12.2-16.2); Lymphocytes # (auto) 1.6 10 ^3/uL (0.4-5.4); Lymphocytes % (auto) 38.5 % (10.0-50.0); Mean Corpuscular Hemoglobin 31.1 pg (28.0-32.0); Mean Corpuscular Hgb Conc. 33.4 g/dL (32.0-36.0); Mean Corpuscular Volume 93.4 fL (80.0-100.0); Monocytes # (auto) 0.4 10 ^3/uL (0-1.3); Monocytes % (auto) 9.9 % (0.0-12.0); Neutrophils # (auto) 1.7 10 ^3/uL (1.6-8.6); Neutrophils % (auto) 41.7 % (37.0-80.0); Nucleated Red Blood Cells % 0.1 %; Red Blood Cells 3.63 10^6/uL (4.0-5.20); Red Cell Distribution Width 17.6 % (11.8-14.3); White Blood Cell 4.2 10^3/uL (4.4-10.8)
[2021-04-05 05:52] LABS: Potassium 4.2 mmol/L (3.5-5.1)
[2021-04-05 05:57] LABS: BUN/Creatinine Ratio 11.1; Calcium 8.1 mg/dL (8.5-10.1)
[2021-04-05] MEDS ORDERED: LEVOTHYROXINE SODIUM 100 MCG TAB PO SCH (07:00)
[2021-04-05 08:00] VITALS: BP 105/70
[2021-04-05 08:20] VITALS: BP 105/70
[2021-04-05] MEDS: cefTRIAXone 1GM/50ML D5W 50 ML IV SCH (09:20)
[2021-04-05] MEDS: ENOXAPARIN SOD 40 MG/0.4 ML SYRINGE SC SCH (09:26)
[2021-04-05] MEDS: hydrOXYchloroQUINE SULFATE 200 MG TAB PO SCH ×2 (09:27→21:00)
[2021-04-05] MEDS: POTASSIUM CHL 10 Meq TABLET PO SCH (09:27)
[2021-04-05] MEDS: PANTOPRAZOLE 40 MG TAB PO SCH (09:27)
[2021-04-05] MEDS: FOLIC ACID 1 MG TAB PO SCH (09:27)
[2021-04-05] MEDS: ASPirin-EC 325mg tab PO SCH (09:27)
[2021-04-05] MEDS: FERROUS SULFATE 325mg EC TAB PO SCH (09:27)
[2021-04-05 12:00] VITALS: BP 96/65
[2021-04-05 16:00] VITALS: BP 112/73
[2021-04-05] MEDS ORDERED: LEVOTHYROXINE SODIUM 100 MCG/5 ML INJ IV ONE (16:45)
[2021-04-05] MEDS: Ensure Enlive Strawberry 8oz Bottle PO SCH (18:12)
[2021-04-05] MEDS: TEMAZEPAM 15 MG CAP PO PRN (21:00)
[2021-04-05] MEDS: hydrOXYzine 25 MG TAB or CAP PO SCH (21:00)
[2021-04-05] MEDS: MONTELUKAST SODIUM 10 MG TAB PO SCH (21:00)
[2021-04-05 22:00] VITALS: BP 166/99
[2021-04-06] VITALS (7 sets, daily range): BP systolic 99–148; BP diastolic 69–85
[2021-04-06] MEDS: CLINDAMYCIN 600MG IV 50 ML IV SCH ×4 (01:57→20:45)
[2021-04-06] MEDS: MORPHINE SULFATE INJECTION 2 MG/ML SYRG IV PRN ×5 (01:58→21:06)
[2021-04-06] MEDS: Ensure Enlive Strawberry 8oz Bottle PO SCH ×3 (08:00→18:00)
[2021-04-06] MEDS: LEVOTHYROXINE SODIUM 100 MCG/5 ML INJ IV SCH (08:11)
[2021-04-06] MEDS: ENOXAPARIN SOD 40 MG/0.4 ML SYRINGE SC SCH (08:13)
[2021-04-06] MEDS: cefTRIAXone 1GM/50ML D5W 50 ML IV SCH (08:13)
[2021-04-06] MEDS: FERROUS SULFATE 325mg EC TAB PO SCH (08:14)
[2021-04-06] MEDS: ASPirin-EC 325mg tab PO SCH (08:14)
[2021-04-06] MEDS: PANTOPRAZOLE 40 MG TAB PO SCH (08:14)
[2021-04-06] MEDS: FOLIC ACID 1 MG TAB PO SCH (08:14)
[2021-04-06] MEDS: POTASSIUM CHL 10 Meq TABLET PO SCH (08:14)
[2021-04-06] MEDS: hydrOXYchloroQUINE SULFATE 200 MG TAB PO SCH ×2 (08:15→21:06)
[2021-04-06] MEDS: MONTELUKAST SODIUM 10 MG TAB PO SCH (21:06)
[2021-04-06] MEDS: TEMAZEPAM 15 MG CAP PO PRN (21:06)
[2021-04-06] MEDS: hydrOXYzine 25 MG TAB or CAP PO SCH (21:06)
[2021-04-06] MEDS: IPRATROPIUM BROM 0.5 MG/2.5ML INH SOL NEB SCH (21:55)
[2021-04-07] MEDS: CLINDAMYCIN 600MG IV 50 ML IV SCH ×4 (01:45→20:34)
[2021-04-07] MEDS: MORPHINE SULFATE INJECTION 2 MG/ML SYRG IV PRN ×4 (01:45→20:35)
[2021-04-07 05:00] VITALS: BP 102/69
[2021-04-07] MEDS: IPRATROPIUM BROM 0.5 MG/2.5ML INH SOL NEB SCH ×2 (06:54→23:08)
[2021-04-07] MEDS: Ensure Enlive Strawberry 8oz Bottle PO SCH ×3 (08:00→17:56)
[2021-04-07] MEDS: LEVOTHYROXINE SODIUM 100 MCG/5 ML INJ IV SCH (08:36)
[2021-04-07] MEDS: FERROUS SULFATE 325mg EC TAB PO SCH (08:36)
[2021-04-07] MEDS: FOLIC ACID 1 MG TAB PO SCH (08:37)
[2021-04-07] MEDS: ENOXAPARIN SOD 40 MG/0.4 ML SYRINGE SC SCH (08:37)
[2021-04-07] MEDS: POTASSIUM CHL 10 Meq TABLET PO SCH (08:37)
[2021-04-07] MEDS: hydrOXYchloroQUINE SULFATE 200 MG TAB PO SCH ×2 (08:37→20:34)
[2021-04-07] MEDS: ASPirin-EC 325mg tab PO SCH (08:37)
[2021-04-07 09:23] VITALS: BP 99/66
[2021-04-07] MEDS: cefTRIAXone 1GM/50ML D5W 50 ML IV SCH (09:24)
[2021-04-07] MEDS ORDERED: IPRATROPIUM BROM 0.5 MG/2.5ML INH SOL NEB SCH (10:45)
[2021-04-07] MEDS ORDERED: ACETYLCYSTEINE 10 %(100MG/ML) SOL 4ML NEB SCH (10:45)
[2021-04-07] MEDS ORDERED: ALBUTEROL SULF 2.5 MG/0.5ML(0.5%) NEB SOLN NEB SCH (10:45)
[2021-04-07 13:00] VITALS: BP_SYST 102; BP_SYST 143; BP_DIAS 68; BP_DIAS 92
[2021-04-07 17:00] VITALS: BP 117/75
[2021-04-07] MEDS: MONTELUKAST SODIUM 10 MG TAB PO SCH (20:35)
[2021-04-07] MEDS: hydrOXYzine 25 MG TAB or CAP PO SCH (20:35)
[2021-04-07 22:00] VITALS: BP 137/88
[2021-04-07] MEDS: TEMAZEPAM 15 MG CAP PO PRN (22:01)
[2021-04-07] MEDS: ALBUTEROL SULF 2.5 MG/0.5ML(0.5%) NEB SOLN NEB SCH (23:09)
[2021-04-07] MEDS: ACETYLCYSTEINE 10 %(100MG/ML) SOL 4ML NEB SCH (23:09)
[2021-04-08] MEDS: CLINDAMYCIN 600MG IV 50 ML IV SCH ×2 (02:52→08:17)
[2021-04-08] MEDS: MORPHINE SULFATE INJECTION 2 MG/ML SYRG IV PRN ×6 (02:57→20:58)
[2021-04-08 05:00] VITALS: BP 114/79
[2021-04-08] MEDS: ALBUTEROL SULF 2.5 MG/0.5ML(0.5%) NEB SOLN NEB SCH ×3 (06:52→21:37)
[2021-04-08] MEDS: ACETYLCYSTEINE 10 %(100MG/ML) SOL 4ML NEB SCH ×3 (06:53→21:37)
[2021-04-08] MEDS: IPRATROPIUM BROM 0.5 MG/2.5ML INH SOL NEB SCH ×3 (06:53→21:37)
[2021-04-08] MEDS: Ensure Enlive Strawberry 8oz Bottle PO SCH ×3 (08:17→17:44)
[2021-04-08 09:00] VITALS: BP 111/72
[2021-04-08] MEDS: LEVOTHYROXINE SODIUM 100 MCG/5 ML INJ IV SCH (09:51)
[2021-04-08] MEDS: POTASSIUM CHL 10 Meq TABLET PO SCH (09:51)
[2021-04-08] MEDS: FOLIC ACID 1 MG TAB PO SCH (09:51)
[2021-04-08] MEDS: cefTRIAXone 1GM/50ML D5W 50 ML IV SCH (09:51)
[2021-04-08] MEDS: FERROUS SULFATE 325mg EC TAB PO SCH (09:51)
[2021-04-08] MEDS: ASPirin-EC 325mg tab PO SCH (09:53)
[2021-04-08] MEDS: hydrOXYchloroQUINE SULFATE 200 MG TAB PO SCH ×2 (10:00→22:00)
[2021-04-08] MEDS: ENOXAPARIN SOD 40 MG/0.4 ML SYRINGE SC SCH (10:00)
[2021-04-08] MEDS ORDERED: FLORASTOR (S. BOULARDII) 250 MG CAP PO ONE (10:15)
[2021-04-08] MEDS ORDERED: cefTRIAXone 1GM/50ML D5W 50 ML IV ONE (11:15)
[2021-04-08 11:27] LABS: INR 0.99 (0.9-1.15); Partial Thromboplastin Time 25.5 sec (23.6-33.0)
[2021-04-08 13:00] VITALS: BP 96/65
[2021-04-08 17:00] VITALS: BP 124/80
[2021-04-08 20:00] VITALS: BP 116/89
[2021-04-08 22:00] VITALS: BP 116/89
[2021-04-08] MEDS: MONTELUKAST SODIUM 10 MG TAB PO SCH (22:04)
[2021-04-08] MEDS: hydrOXYzine 25 MG TAB or CAP PO SCH (22:05)
[2021-04-08] MEDS: TEMAZEPAM 15 MG CAP PO PRN (22:13)
[2021-04-09] MEDS: MORPHINE SULFATE INJECTION 2 MG/ML SYRG IV PRN ×5 (00:58→19:45)
[2021-04-09 05:00] VITALS: BP 105/67
[2021-04-09] MEDS: LEVOTHYROXINE SODIUM 100 MCG TAB PO SCH (06:56)
[2021-04-09] MEDS: ACETYLCYSTEINE 10 %(100MG/ML) SOL 4ML NEB SCH ×3 (07:19→23:03)
[2021-04-09] MEDS: IPRATROPIUM BROM 0.5 MG/2.5ML INH SOL NEB SCH ×3 (07:19→23:03)
[2021-04-09] MEDS: ALBUTEROL SULF 2.5 MG/0.5ML(0.5%) NEB SOLN NEB SCH ×3 (07:19→23:02)
[2021-04-09] MEDS: Ensure Enlive Strawberry 8oz Bottle PO SCH ×3 (08:10→17:51)
[2021-04-09] MEDS: FERROUS SULFATE 325mg EC TAB PO SCH (09:35)
[2021-04-09] MEDS: FOLIC ACID 1 MG TAB PO SCH (09:35)
[2021-04-09] MEDS: ASPirin-EC 325mg tab PO SCH (09:35)
[2021-04-09] MEDS: FLORASTOR (S. BOULARDII) 250 MG CAP PO SCH (09:36)
[2021-04-09] MEDS: POTASSIUM CHL 10 Meq TABLET PO SCH (09:36)
[2021-04-09] MEDS: hydrOXYchloroQUINE SULFATE 200 MG TAB PO SCH ×2 (09:36→22:00)
[2021-04-09] MEDS: ENOXAPARIN SOD 40 MG/0.4 ML SYRINGE SC SCH (09:37)
[2021-04-09] MEDS ORDERED: SACC250C PO (10:41)
[2021-04-09] MEDS ORDERED: LEV100T PO (10:41)
[2021-04-09] MEDS ORDERED: DOXY-340 PO (10:43)
[2021-04-09] MEDS ORDERED: DOXYCYCLINE 100 MG TAB/CAP PO ONE (10:45)
[2021-04-09 11:35] VITALS: BP 105/67
[2021-04-09] MEDS: CEFTRIAXONE SODIUM 2 GM in D5W 5% 50 ML IV SCH (13:58)
[2021-04-09] MEDS ORDERED: guaiFENesin-DM 100/10mg/5ml SYR PO PRN (15:45)
[2021-04-09 20:00] VITALS: BP 123/87
[2021-04-09] MEDS: TEMAZEPAM 15 MG CAP PO PRN (21:36)
[2021-04-09] MEDS: DOXYCYCLINE 100 MG TAB/CAP PO SCH (21:36)
[2021-04-09] MEDS: hydrOXYzine 25 MG TAB or CAP PO SCH (21:36)
[2021-04-09] MEDS: MONTELUKAST SODIUM 10 MG TAB PO SCH (21:37)
[2021-04-09 22:25] VITALS: BP 123/87
[2021-04-10] MEDS: MORPHINE SULFATE INJECTION 2 MG/ML SYRG IV PRN ×3 (00:32→10:34)
[2021-04-10 05:46] VITALS: BP 135/79
[2021-04-10] MEDS: ALBUTEROL SULF 2.5 MG/0.5ML(0.5%) NEB SOLN NEB SCH (06:19)
[2021-04-10] MEDS: IPRATROPIUM BROM 0.5 MG/2.5ML INH SOL NEB SCH (06:19)
[2021-04-10] MEDS: ACETYLCYSTEINE 10 %(100MG/ML) SOL 4ML NEB SCH (06:19)
[2021-04-10] MEDS: LEVOTHYROXINE SODIUM 100 MCG TAB PO SCH (06:47)
[2021-04-10 08:00] VITALS: BP 118/67
[2021-04-10 09:00] VITALS: BP 118/67
[2021-04-10] MEDS: hydrOXYchloroQUINE SULFATE 200 MG TAB PO SCH (10:00)
[2021-04-10] MEDS: POTASSIUM CHL 10 Meq TABLET PO SCH (10:15)
[2021-04-10] MEDS: ASPirin-EC 325mg tab PO SCH (10:15)
[2021-04-10] MEDS: FOLIC ACID 1 MG TAB PO SCH (10:15)
[2021-04-10] MEDS: DOXYCYCLINE 100 MG TAB/CAP PO SCH (10:15)
[2021-04-10] MEDS: FERROUS SULFATE 325mg EC TAB PO SCH (10:15)
[2021-04-10] MEDS: CEFTRIAXONE SODIUM 2 GM in D5W 5% 50 ML IV SCH (10:16)
[2021-04-10] MEDS: ENOXAPARIN SOD 40 MG/0.4 ML SYRINGE SC SCH (10:16)
[2021-04-10] MEDS: Ensure Enlive Strawberry 8oz Bottle PO SCH (10:17)
[2021-04-10] MEDS: FLORASTOR (S. BOULARDII) 250 MG CAP PO SCH (10:19)
[2021-04-10] MEDS ORDERED: GUAI600T23 PO (12:06)
[2021-04-10 13:00] VITALS: BP_SYST 124; BP_SYST 137; BP_DIAS 90; BP_DIAS 92
[2021-04-29] MEDS ORDERED: CEPH-322 PO (14:30)
[2021-04-29] MEDS ORDERED: SUCR1TAB22 PO (14:30)
[2021-04-29] MEDS ORDERED: PANT40TA2 PO (14:30)
[2021-04-29] MEDS ORDERED: AML5T PO (14:31)
== END 2021-04-10 13:46 | disposition home health service (06) | DRG 603 ==
LOC: ER 14:17 → OVERFLOW 21:19 → WEST WING 04-02 16:47
PROVIDERS: ADMIT Nurse Practitioner; ATTEND Internal Medicine
PROC: 05HD33Z Insertion of Infusion Device into Right Cephalic Vein, Percutaneous Approach (ICD-10-PCS; principal; 2021-04-09)
PROC: B54MZZA Ultrasonography of Right Upper Extremity Veins, Guidance (ICD-10-PCS; 2021-04-09)
DX: L03.114 Cellulitis of left upper limb (principal); E44.1 Mild protein-calorie malnutrition; F11.20 Opioid dependence, uncomplicated; J98.11 Atelectasis; S09.90XA Unspecified injury of head, initial encounter; Q07.00 Arnold-Chiari syndrome without spina bifida or hydrocephalus; G89.4 Chronic pain syndrome; E66.9 Obesity, unspecified; D63.8 Anemia in other chronic diseases classified elsewhere; E03.9 Hypothyroidism, unspecified; E78.5 Hyperlipidemia, unspecified; F17.210 Nicotine dependence, cigarettes, uncomplicated; E88.09 Other disorders of plasma-protein metabolism, not elsewhere classified; J44.9 Chronic obstructive pulmonary disease, unspecified; W18.39XA Other fall on same level, initial encounter; M70.22 Olecranon bursitis, left elbow; Z20.822 Contact with and (suspected) exposure to COVID-19; Z88.8 Allergy status to other drugs, medicaments and biological substances; Z88.1 Allergy status to other antibiotic agents; Z91.040 Latex allergy status; Z68.33 Body mass index [BMI] 33.0-33.9, adult; Y93.89 Activity, other specified; Y92.89 Other specified places as the place of occurrence of the external cause; Y99.8 Other external cause status
CPT/HCPCS: 36415; 70450; 71045; 71250; 73200; 80048; 80053; 83605; 83735; 84439; 84443; 84702; 85025; 85610; 85730; 87040; 87081; 87426; 93005; 93971; 94640; 94660; 96365; 96366; 96367; 96375; G0378; J0696; J2405; J3490; J7060

== ENCOUNTER 2021-04-22 17:02 | Inpatient (IN) | payer MEDICARE, MEDICAID ==
[~2021-04-22] VITALS: Ht 185.4 cm; Wt 75.4 kg
[~2021-04-22 17:02] MED LIST changes: +DOXY-340 PO; +GUAI600T23 PO; +LEV100T PO; +SACC250C PO
[2021-04-22] MEDS ORDERED: CLINDAMYCIN 600MG IV 50 ML IV ONE (18:00)
[2021-04-22 18:31] LABS: Basophils # (auto) 0 10 ^3/uL (0-0.2); Basophils % (auto) 0.2 % (0.0-2.0); Eosinophils # (auto) 0.2 10 ^3/uL (0-0.8); Eosinophils % (auto) 3.7 % (0.0-7.0); Hematocrit 41.9 % (36.0-46.0); Hemoglobin 13.6 g/dL (12.2-16.2); Lymphocytes # (auto) 2.2 10 ^3/uL (0.4-5.4); Lymphocytes % (auto) 38.7 % (10.0-50.0); Mean Corpuscular Hgb Conc. 32.6 g/dL (32.0-36.0); Mean Corpuscular Volume 92.1 fL (80.0-100.0); Monocytes # (auto) 0.4 10 ^3/uL (0-1.3); Monocytes % (auto) 6.8 % (0.0-12.0); Neutrophils # (auto) 2.8 10 ^3/uL (1.6-8.6); Neutrophils % (auto) 50.6 % (37.0-80.0); Nucleated Red Blood Cells % 0.2 %; Red Blood Cells 4.55 10^6/uL (4.0-5.20); White Blood Cell 5.6 10^3/uL (4.4-10.8)
[2021-04-22 18:40] LABS: Alanine Aminotransferase 50 U/L (13-56); Albumin 3.5 g/dL (3.4-5.0); Anion Gap 13 (5-15); Aspartate Aminotransferase 136 U/L (15-37); BUN/Creatinine Ratio 14.1; Blood Urea Nitrogen 11 mg/dL (7-18); Calcium 8.8 mg/dL (8.5-10.1); Carbon Dioxide 23 mmol/L (21-32); Chloride 103 mmol/L (98-107); GFR African American 102 mL/min; GFR Non-African American 84 mL/min; Glucose 83 mg/dL (74-106); Magnesium 2.3 mg/dL (1.6-2.6); Potassium 3.7 mmol/L (3.5-5.1); Sodium 139 mmol/L (136-145)
[2021-04-22 18:45] LABS: Alkaline Phosphatase 103 U/L (45-117); Bilirubin, Total 0.5 mg/dL (0.2-1.0); Total Protein 8.3 g/dL (6.4-8.2)
[2021-04-22 19:27] LABS: Lactic Acid w/Reflex 3.2 mmol/L (0.4-2.0)
[2021-04-22] MEDS ORDERED: MORPHINE SULFATE INJECTION 2 MG/ML SYRG IV PRN (22:30)
[2021-04-22] MEDS ORDERED: HYDROcodone-ACET 5/325MG TAB PO PRN (22:30)
[2021-04-22] MEDS ORDERED: ACETAMINOPHEN 325 MG TAB PO PRN (22:30)
[2021-04-22] MEDS ORDERED: NITROGLYCERIN 0.4 MG SL TAB SL PRN (22:30)
[2021-04-22] MEDS ORDERED: D5W/SOD CHL 0.45% 1,000 ML IV ONE (22:30)
[2021-04-22] MEDS ORDERED: hydrOXYzine 25 MG TAB or CAP PO PRN (23:30)
[2021-04-22 23:39] LABS: Lactic Acid w/Reflex 2.2 mmol/L (0.4-2.0)
[2021-04-23] MEDS ORDERED: ceFAZolin 1GM/50ML 50 ML IV ONE (01:15)
[2021-04-23] MEDS: diphenhdrAMINE HCL 50 MG/1 ML VL IV PRN ×5 (01:54→22:34)
[2021-04-23] MEDS: MORPHINE SULFATE 4 MG/ML SYR/VIAL IV PRN ×5 (01:54→22:33)
[2021-04-23] MEDS: LORazepam 0.5 MG TAB PO PRN ×2 (01:54→09:49)
[2021-04-23 04:53] LABS: Basophils # (auto) 0 10 ^3/uL (0-0.2); Basophils % (auto) 0.3 % (0.0-2.0); Eosinophils # (auto) 0.3 10 ^3/uL (0-0.8); Eosinophils % (auto) 4.1 % (0.0-7.0); Hematocrit 40.5 % (36.0-46.0); Hemoglobin 13.5 g/dL (12.2-16.2); Lymphocytes # (auto) 2.9 10 ^3/uL (0.4-5.4); Lymphocytes % (auto) 42.9 % (10.0-50.0); Mean Corpuscular Hemoglobin 30.8 pg (28.0-32.0); Mean Corpuscular Hgb Conc. 33.4 g/dL (32.0-36.0); Mean Corpuscular Volume 92.1 fL (80.0-100.0); Monocytes # (auto) 0.5 10 ^3/uL (0-1.3); Monocytes % (auto) 7.1 % (0.0-12.0); Neutrophils # (auto) 3.1 10 ^3/uL (1.6-8.6); Neutrophils % (auto) 45.6 % (37.0-80.0); Red Cell Distribution Width 16.6 % (11.8-14.3); White Blood Cell 6.9 10^3/uL (4.4-10.8)
[2021-04-23 05:03] LABS: Potassium 3.6 mmol/L (3.5-5.1)
[2021-04-23 05:13] LABS: Albumin 3.7 g/dL (3.4-5.0); BUN/Creatinine Ratio 16.7; Bilirubin, Total 0.9 mg/dL (0.2-1.0); Calcium 8.6 mg/dL (8.5-10.1); Total Protein 8.4 g/dL (6.4-8.2)
[2021-04-23] MEDS: ceFAZolin 1GM/50ML 50 ML IV SCH ×3 (06:31→22:25)
[2021-04-23] MEDS ORDERED: LEVOTHYROXINE SODIUM 100 MCG TAB PO SCH (07:00)
[2021-04-23] MEDS: ASCORBIC ACID 500 MG TAB PO SCH ×2 (09:45→22:25)
[2021-04-23] MEDS: FAMOTIDINE (10MG/ML) 2ML VL IV SCH (09:45)
[2021-04-23] MEDS: ZINC SULFATE 220mg CAP or TAB PO SCH (09:45)
[2021-04-23] MEDS: MULTIPLE VITAMIN TAB PO SCH (09:45)
[2021-04-23 14:10] VITALS: BP 156/79
[2021-04-23] MEDS ORDERED: ALBUTEROL SULF 2.5 MG/0.5ML(0.5%) NEB SOLN NEB PRN (14:15)
[2021-04-23] MEDS ORDERED: IPRATROPIUM BROM 0.5 MG/2.5ML INH SOL NEB PRN (14:15)
[2021-04-23] MEDS: ONDANSETRON HCL 4 MG/2 ML VIAL IV PRN (18:25)
[2021-04-23 22:00] VITALS: BP 159/86
[2021-04-24] MEDS: diphenhdrAMINE HCL 50 MG/1 ML VL IV PRN ×3 (03:48→23:11)
[2021-04-24] MEDS: LORazepam 0.5 MG TAB PO PRN ×3 (03:49→23:10)
[2021-04-24 05:00] VITALS: BP 148/108
[2021-04-24] MEDS: ceFAZolin 1GM/50ML 50 ML IV SCH ×3 (05:03→22:20)
[2021-04-24] MEDS: LEVOTHYROXINE SODIUM 100 MCG TAB PO SCH (06:00)
[2021-04-24 08:37] VITALS: BP 135/82
[2021-04-24] MEDS: ZINC SULFATE 220mg CAP or TAB PO SCH (09:49)
[2021-04-24] MEDS: FAMOTIDINE (10MG/ML) 2ML VL IV SCH (09:49)
[2021-04-24] MEDS: ASCORBIC ACID 500 MG TAB PO SCH ×2 (09:49→22:21)
[2021-04-24] MEDS: MULTIPLE VITAMIN TAB PO SCH (09:49)
[2021-04-24] MEDS: MORPHINE SULFATE 4 MG/ML SYR/VIAL IV PRN ×2 (10:32→15:18)
[2021-04-24 12:13] VITALS: BP 160/95
[2021-04-24] MEDS ORDERED: cloNIDine HCL 0.1 MG TAB PO PRN (12:30)
[2021-04-24] MEDS ORDERED: IOHEXOL 300 MG/ML 100ML BOTTLE IJ ONE (15:07)
[2021-04-24] MEDS: ONDANSETRON HCL 4 MG/2 ML VIAL IV PRN (15:10)
[2021-04-24 16:20] VITALS: BP 137/98
[2021-04-24] MEDS: SUCRALFATE 1 GM/10 ML ORAL SUSP PO SCH ×2 (17:00→22:20)
[2021-04-24] MEDS: Ensure HIGH Protein Chocolate 8oz Bottle PO SCH ×2 (18:07→22:00)
[2021-04-24 22:00] VITALS: BP 147/102
[2021-04-24] MEDS ORDERED: PANTOPRAZOLE 40 MG TAB PO SCH (22:00)
[2021-04-24] MEDS: PANTOPRAZOLE 40 MG/10 ML VIAL INJ IV SCH (22:20)
[2021-04-24] MEDS: METOPROLOL TARTRATE 25 MG TAB PO SCH (22:21)
[2021-04-24] MEDS: methylPREDNISolone SOD SUCC 40 MG/ML VL IV SCH (23:10)
[2021-04-25] VITALS (7 sets, daily range): BP systolic 121–152; BP diastolic 63–97
[2021-04-25] MEDS: MORPHINE SULFATE 4 MG/ML SYR/VIAL IV PRN ×3 (03:47→17:52)
[2021-04-25] MEDS: diphenhdrAMINE HCL 50 MG/1 ML VL IV PRN ×3 (03:48→19:42)
[2021-04-25 06:00] LABS: Basophils # (auto) 0 10 ^3/uL (0-0.2); Eosinophils # (auto) 0 10 ^3/uL (0-0.8); Eosinophils % (auto) 0.1 % (0.0-7.0); Hematocrit 37.2 % (36.0-46.0); Hemoglobin 12.4 g/dL (12.2-16.2); Lymphocytes # (auto) 0.5 10 ^3/uL (0.4-5.4); Lymphocytes % (auto) 24.7 % (10.0-50.0); Mean Corpuscular Hemoglobin 31.1 pg (28.0-32.0); Mean Corpuscular Hgb Conc. 33.4 g/dL (32.0-36.0); Mean Corpuscular Volume 93.1 fL (80.0-100.0); Monocytes # (auto) 0.1 10 ^3/uL (0-1.3); Monocytes % (auto) 3.7 % (0.0-12.0); Neutrophils # (auto) 1.5 10 ^3/uL (1.6-8.6); Neutrophils % (auto) 71.5 % (37.0-80.0); Nucleated Red Blood Cells % 0.1 %; Red Cell Distribution Width 16.7 % (11.8-14.3); White Blood Cell 2.2 10^3/uL (4.4-10.8)
[2021-04-25] MEDS: Ensure HIGH Protein Chocolate 8oz Bottle PO SCH ×4 (06:00→22:00)
[2021-04-25 06:16] LABS: Potassium 4.7 mmol/L (3.5-5.1)
[2021-04-25 06:22] LABS: BUN/Creatinine Ratio 16.2
[2021-04-25] MEDS: SUCRALFATE 1 GM/10 ML ORAL SUSP PO SCH ×4 (06:31→22:21)
[2021-04-25] MEDS: methylPREDNISolone SOD SUCC 40 MG/ML VL IV SCH ×4 (06:31→22:22)
[2021-04-25] MEDS: ceFAZolin 1GM/50ML 50 ML IV SCH ×3 (06:31→22:20)
[2021-04-25] MEDS: LORazepam 0.5 MG TAB PO PRN ×3 (06:32→19:42)
[2021-04-25] MEDS: LEVOTHYROXINE SODIUM 100 MCG TAB PO SCH (06:32)
[2021-04-25] MEDS: ASCORBIC ACID 500 MG TAB PO SCH ×2 (09:44→22:21)
[2021-04-25] MEDS: PANTOPRAZOLE 40 MG/10 ML VIAL INJ IV SCH ×2 (09:44→22:21)
[2021-04-25] MEDS: METOPROLOL TARTRATE 25 MG TAB PO SCH ×2 (09:44→22:22)
[2021-04-25] MEDS: MULTIPLE VITAMIN TAB PO SCH (09:44)
[2021-04-25] MEDS: ZINC SULFATE 220mg CAP or TAB PO SCH (09:44)
[2021-04-26] MEDS ORDERED: DOCUSATE SOD 100 MG CAP PO ONE (00:30)
[2021-04-26] MEDS: MORPHINE SULFATE 4 MG/ML SYR/VIAL IV PRN (03:26)
[2021-04-26] MEDS: LORazepam 0.5 MG TAB PO PRN ×3 (03:26→22:23)
[2021-04-26 05:00] VITALS: BP 146/94
[2021-04-26] MEDS: Ensure HIGH Protein Chocolate 8oz Bottle PO SCH ×4 (06:00→22:09)
[2021-04-26] MEDS: LEVOTHYROXINE SODIUM 100 MCG TAB PO SCH (06:02)
[2021-04-26] MEDS: methylPREDNISolone SOD SUCC 40 MG/ML VL IV SCH ×3 (06:02→13:03)
[2021-04-26] MEDS: ceFAZolin 1GM/50ML 50 ML IV SCH (06:02)
[2021-04-26] MEDS: SUCRALFATE 1 GM/10 ML ORAL SUSP PO SCH ×4 (06:03→22:07)
[2021-04-26 06:09] LABS: Basophils # (auto) 0 10 ^3/uL (0-0.2); Eosinophils # (auto) 0 10 ^3/uL (0-0.8); Hematocrit 37.5 % (36.0-46.0); Hemoglobin 12.5 g/dL (12.2-16.2); Lymphocytes # (auto) 1.2 10 ^3/uL (0.4-5.4); Lymphocytes % (auto) 19.9 % (10.0-50.0); Mean Corpuscular Hemoglobin 31.2 pg (28.0-32.0); Mean Corpuscular Hgb Conc. 33.3 g/dL (32.0-36.0); Mean Corpuscular Volume 93.7 fL (80.0-100.0); Monocytes # (auto) 0.4 10 ^3/uL (0-1.3); Monocytes % (auto) 7.3 % (0.0-12.0); Neutrophils # (auto) 4.4 10 ^3/uL (1.6-8.6); Neutrophils % (auto) 72.8 % (37.0-80.0); Nucleated Red Blood Cells % 0.1 %; Red Blood Cells 4.01 10^6/uL (4.0-5.20); Red Cell Distribution Width 16.9 % (11.8-14.3)
[2021-04-26 06:38] LABS: Calcium 8.9 mg/dL (8.5-10.1); Potassium 4.3 mmol/L (3.5-5.1)
[2021-04-26 06:40] LABS: BUN/Creatinine Ratio 18.3
[2021-04-26 08:00] VITALS: BP 159/106
[2021-04-26] MEDS: MULTIPLE VITAMIN TAB PO SCH (11:39)
[2021-04-26] MEDS: ZINC SULFATE 220mg CAP or TAB PO SCH (11:39)
[2021-04-26] MEDS: ASCORBIC ACID 500 MG TAB PO SCH ×2 (11:40→22:09)
[2021-04-26] MEDS: DOCUSATE SOD 100 MG CAP PO SCH ×2 (11:40→22:07)
[2021-04-26] MEDS: diphenhdrAMINE HCL 50 MG/1 ML VL IV PRN (11:41)
[2021-04-26] MEDS: METOPROLOL TARTRATE 25 MG TAB PO SCH ×2 (11:41→22:09)
[2021-04-26] MEDS: PANTOPRAZOLE 40 MG/10 ML VIAL INJ IV SCH ×2 (11:41→22:07)
[2021-04-26 13:13] VITALS: BP 136/101
[2021-04-26] MEDS ORDERED: amLODIPine BESYLATE 5 MG TAB PO ONE (14:45)
[2021-04-26] MEDS ORDERED: hydrALAZINE HCL 20 MG/ML VL IV PRN (14:45)
[2021-04-26 17:00] VITALS: BP 166/96
[2021-04-26] MEDS: CEPHALEXIN 250 MG CAP PO SCH (17:51)
[2021-04-26] MEDS: MORPHINE SULFATE INJECTION 2 MG/ML SYRG IV PRN (20:45)
[2021-04-26] MEDS: hydrOXYzine 25 MG TAB or CAP PO PRN (20:52)
[2021-04-26 22:00] VITALS: BP 150/113
[2021-04-27] MEDS: TEMAZEPAM 15 MG CAP PO PRN (01:45)
[2021-04-27 05:00] VITALS: BP 148/77
[2021-04-27] MEDS: CEPHALEXIN 250 MG CAP PO SCH ×4 (06:00→17:09)
[2021-04-27] MEDS: MORPHINE SULFATE INJECTION 2 MG/ML SYRG IV PRN ×2 (06:00→10:59)
[2021-04-27] MEDS: Ensure HIGH Protein Chocolate 8oz Bottle PO SCH ×4 (06:00→21:21)
[2021-04-27] MEDS: SUCRALFATE 1 GM/10 ML ORAL SUSP PO SCH ×4 (06:30→21:20)
[2021-04-27] MEDS: LEVOTHYROXINE SODIUM 100 MCG TAB PO SCH (06:30)
[2021-04-27 09:00] VITALS: BP 141/89
[2021-04-27] MEDS ORDERED: MORP30TA PO (09:52)
[2021-04-27] MEDS ORDERED: MORP1TAB14 PO (09:52)
[2021-04-27] MEDS: DOCUSATE SOD 100 MG CAP PO SCH ×2 (10:00→21:20)
[2021-04-27] MEDS: PANTOPRAZOLE 40 MG/10 ML VIAL INJ IV SCH ×2 (10:00→21:20)
[2021-04-27] MEDS: MULTIPLE VITAMIN TAB PO SCH (10:54)
[2021-04-27] MEDS: amLODIPine BESYLATE 5 MG TAB PO SCH (10:55)
[2021-04-27] MEDS: METOPROLOL TARTRATE 25 MG TAB PO SCH ×2 (10:56→22:28)
[2021-04-27] MEDS: ZINC SULFATE 220mg CAP or TAB PO SCH (10:56)
[2021-04-27] MEDS: ASCORBIC ACID 500 MG TAB PO SCH ×2 (10:57→21:21)
[2021-04-27] MEDS: hydrOXYzine 25 MG TAB or CAP PO PRN (11:06)
[2021-04-27] MEDS: LORazepam 0.5 MG TAB PO PRN (11:06)
[2021-04-27 13:00] VITALS: BP 133/87
[2021-04-27] MEDS ORDERED: LEVOTHYROXINE SODIUM 100 MCG/5 ML INJ IV ONE (14:30)
[2021-04-27] MEDS: ONDANSETRON HCL 4 MG/2 ML VIAL IV PRN (15:51)
[2021-04-27 16:40] VITALS: BP 125/82
[2021-04-27] MEDS: HYDROmorphone HCL 2 MG TAB PO PRN ×2 (18:36→22:43)
[2021-04-27] MEDS: MORPHINE SULF 30 mg ER tab PO SCH (21:21)
[2021-04-27 22:00] VITALS: BP 134/80
[2021-04-28] MEDS: TEMAZEPAM 15 MG CAP PO PRN (00:38)
[2021-04-28] MEDS: CEPHALEXIN 250 MG CAP PO SCH ×4 (00:38→17:40)
[2021-04-28] MEDS: HYDROmorphone HCL 2 MG TAB PO PRN ×4 (03:44→21:55)
[2021-04-28] MEDS: hydrOXYzine 25 MG TAB or CAP PO PRN (03:53)
[2021-04-28 05:00] VITALS: BP 121/54
[2021-04-28] MEDS: SUCRALFATE 1 GM/10 ML ORAL SUSP PO SCH ×4 (06:44→21:17)
[2021-04-28] MEDS: Ensure HIGH Protein Chocolate 8oz Bottle PO SCH ×4 (06:44→21:17)
[2021-04-28] MEDS: LEVOTHYROXINE SODIUM 100 MCG/5 ML INJ IV SCH (09:35)
[2021-04-28] MEDS: PANTOPRAZOLE 40 MG/10 ML VIAL INJ IV SCH ×2 (09:35→21:16)
[2021-04-28] MEDS: MULTIPLE VITAMIN TAB PO SCH (09:35)
[2021-04-28] MEDS: MORPHINE SULF 30 mg ER tab PO SCH (09:35)
[2021-04-28] MEDS: ZINC SULFATE 220mg CAP or TAB PO SCH (09:35)
[2021-04-28] MEDS: ASCORBIC ACID 500 MG TAB PO SCH ×2 (09:36→21:57)
[2021-04-28 09:57] VITALS: BP 108/60
[2021-04-28] MEDS: DOCUSATE SOD 100 MG CAP PO SCH ×2 (10:32→21:55)
[2021-04-28] MEDS: METOPROLOL TARTRATE 25 MG TAB PO SCH ×2 (10:32→21:57)
[2021-04-28] MEDS: amLODIPine BESYLATE 5 MG TAB PO SCH (10:33)
[2021-04-28 13:04] VITALS: BP 98/62
[2021-04-28 17:00] VITALS: BP 94/72
[2021-04-28 22:00] VITALS: BP 145/87
[2021-04-29] MEDS: CEPHALEXIN 250 MG CAP PO SCH ×4 (00:05→16:53)
[2021-04-29] MEDS: MORPHINE SULF 30 mg ER tab PO SCH ×2 (00:05→09:47)
[2021-04-29] MEDS: TEMAZEPAM 15 MG CAP PO PRN (00:06)
[2021-04-29] MEDS: HYDROmorphone HCL 2 MG TAB PO PRN ×2 (03:17→09:47)
[2021-04-29 05:00] VITALS: BP 113/84
[2021-04-29] MEDS: Ensure HIGH Protein Chocolate 8oz Bottle PO SCH ×2 (06:44→12:02)
[2021-04-29] MEDS: SUCRALFATE 1 GM/10 ML ORAL SUSP PO SCH ×3 (06:45→16:53)
[2021-04-29 09:00] VITALS: BP 127/94
[2021-04-29] MEDS: MULTIPLE VITAMIN TAB PO SCH (09:46)
[2021-04-29] MEDS: LEVOTHYROXINE SODIUM 100 MCG/5 ML INJ IV SCH (09:46)
[2021-04-29] MEDS: METOPROLOL TARTRATE 25 MG TAB PO SCH (09:46)
[2021-04-29] MEDS: PANTOPRAZOLE 40 MG/10 ML VIAL INJ IV SCH (09:46)
[2021-04-29] MEDS: ZINC SULFATE 220mg CAP or TAB PO SCH (09:46)
[2021-04-29] MEDS: amLODIPine BESYLATE 5 MG TAB PO SCH (09:47)
[2021-04-29] MEDS: ASCORBIC ACID 500 MG TAB PO SCH (09:47)
[2021-04-29] MEDS: DOCUSATE SOD 100 MG CAP PO SCH (10:00)
[2021-04-29] MEDS ORDERED: LORazepam 2MG/ML-1ML VIAL IV ONE (10:45)
[2021-04-29 13:00] VITALS: BP 122/92
[2021-04-29] MEDS ORDERED: SUCR1TAB22 PO (14:30)
[2021-04-29] MEDS ORDERED: CEPH-322 PO (14:30)
[2021-04-29] MEDS ORDERED: PANT40TA2 PO (14:30)
[2021-04-29] MEDS ORDERED: AML5T PO (14:31)
[2021-04-29 16:43] VITALS: BP 105/74
== END 2021-04-29 17:40 | disposition home health service (06) | DRG 315 ==
LOC: EDBD 17:02 → EDUNIT# 17:02 → ER 17:02 → OVERFLOW 22:30 → WEST WING 04-23 13:54
PROVIDERS: ADMIT Nurse Practitioner Family; ATTEND Internal Medicine
DX: T82.514A Breakdown (mechanical) of infusion catheter, initial encounter (principal); L03.114 Cellulitis of left upper limb; E44.1 Mild protein-calorie malnutrition; R65.10 Systemic inflammatory response syndrome (SIRS) of non-infectious origin without acute organ dysfunction; E87.2 Acidosis; F11.20 Opioid dependence, uncomplicated; Y71.2 Prosthetic and other implants, materials and accessory cardiovascular devices associated with adverse incidents; E03.9 Hypothyroidism, unspecified; J44.9 Chronic obstructive pulmonary disease, unspecified; K42.9 Umbilical hernia without obstruction or gangrene; D63.8 Anemia in other chronic diseases classified elsewhere; T36.8X5A Adverse effect of other systemic antibiotics, initial encounter; F17.210 Nicotine dependence, cigarettes, uncomplicated; G40.909 Epilepsy, unspecified, not intractable, without status epilepticus; G89.4 Chronic pain syndrome; E78.5 Hyperlipidemia, unspecified; Z20.822 Contact with and (suspected) exposure to COVID-19; I10 Essential (primary) hypertension; Y92.89 Other specified places as the place of occurrence of the external cause; Z91.040 Latex allergy status; Z88.8 Allergy status to other drugs, medicaments and biological substances; Z91.19 Patient's noncompliance with other medical treatment and regimen; Z98.84 Bariatric surgery status; Z68.34 Body mass index [BMI] 34.0-34.9, adult
CPT/HCPCS: 36415; 71045; 73221; 74177; 80048; 80053; 83605; 83735; 84443; 84484; 85025; 87040; 87426; 93005; 96361; 96365; 96366; 96375; 97110; 97116; 97530; C9113; G0378; J0690; J2405; J3490

== ENCOUNTER 2023-10-22 05:08 | Emergency (ER) | payer OTHER, MEDICARE, MEDICAID ==
[~2023-10-22] VITALS: Ht 162.6 cm; Wt 65.0 kg
[~2023-10-22 05:08] MED LIST changes: +CEPH250C PO; -DOXY-340 PO; +DOXY1CAP57 PO; +FOLI-119 PO; -FOLI1TAB6 PO; -LANS30CA57 PO; +MORP1TAB14 PO; +MORP30TA PO; +PANT40TA2 PO; +SUCR1TAB22 PO
[2023-10-22 05:50] VITALS: BP 119/91; PULSE 16; RESP 16; O2SAT 97
== END 2023-10-22 06:41 | disposition left against medical advice (07) ==
LOC: ER 05:08 → EDBD 05:08 → ER 06:41
DX: T50.991A Poisoning by other drugs, medicaments and biological substances, accidental (unintentional), initial encounter (principal); J44.9 Chronic obstructive pulmonary disease, unspecified; E78.5 Hyperlipidemia, unspecified; F17.210 Nicotine dependence, cigarettes, uncomplicated; Z88.8 Allergy status to other drugs, medicaments and biological substances; Z91.040 Latex allergy status; Z79.899 Other long term (current) drug therapy; Y92.89 Other specified places as the place of occurrence of the external cause
CPT/HCPCS: 93005

== ENCOUNTER 2024-03-01 17:44 | Inpatient (IN) | payer OTHER, MEDICARE, MEDICAID ==
[~2024-03-01] VITALS: Ht 170.2 cm; Wt 74.0 kg
[~2024-03-01 17:44] MED LIST changes: -ASPI325T4 PO; +ASPI325T6 PO; -GUAI600T23 PO; +GUAI600T78 PO; -HYDR-4188 OR; +HYDR-4491 OR; +POTA-36 PO; -POTA10TA51 PO; -SUCR1TAB22 PO; +SUCR1TAB31 PO
[2024-03-01 18:35] VITALS: RESP 16
[2024-03-01] MEDS: ONDANSETRON HCL 4 MG/2 ML VIAL IV ONE (19:00)
[2024-03-01] MEDS: MORPHINE SULFATE 4 MG/ML SYR/VIAL IV ONE (19:01)
[2024-03-01 20:30] VITALS: PULSE 74; RESP 16; O2SAT 96
[2024-03-01] MEDS: HYDROmorphone HCL 2 MG/ML VL/or syr IV ONE (22:35)
[2024-03-02] MEDS ORDERED: ACETAMINOPHEN 325 MG TAB PO PRN
[2024-03-02] MEDS ORDERED: HYDROcodone-ACET 5/325MG TAB PO PRN
[2024-03-02] MEDS ORDERED: ONDANSETRON HCL 4 MG/2 ML VIAL IV PRN
[2024-03-02] MEDS ORDERED: DOCUSATE SOD 100 MG CAP PO PRN
[2024-03-02] MEDS ORDERED: NITROGLYCERIN 0.4 MG SL TAB SL PRN (00:15)
[2024-03-02] MEDS ORDERED: MORPHINE SULFATE INJ 2 MG/ml SYRG IV PRN (00:15)
[2024-03-02] MEDS: MORPHINE SULFATE INJ 2 MG/ml SYRG IV PRN (00:30)
[2024-03-02] MEDS: SODIUM CHLORIDE 0.9% 1,000 ML IV SCH (00:31)
[2024-03-02 00:52] LABS: Basophils # (auto) 0 10 ^3/uL (0-0.2); Basophils % (auto) 0.3 % (0.0-2.0); Eosinophils # (auto) 0.2 10 ^3/uL (0-0.8); Eosinophils % (auto) 4.2 % (0.0-7.0); Hematocrit 32.2 % (36.0-46.0); Hemoglobin 10.9 g/dL (12.2-16.2); Lymphocytes # (auto) 1.6 10 ^3/uL (0.4-5.4); Lymphocytes % (auto) 42.2 % (10.0-50.0); Mean Corpuscular Hemoglobin 32.8 pg (28.0-32.0); Mean Corpuscular Hgb Conc. 33.9 g/dL (32.0-36.0); Mean Corpuscular Volume 96.6 fL (80.0-100.0); Monocytes # (auto) 0.3 10 ^3/uL (0-1.3); Monocytes % (auto) 9.1 % (0.0-12.0); Neutrophils # (auto) 1.6 10 ^3/uL (1.6-8.6); Neutrophils % (auto) 44.2 % (37.0-80.0); Red Blood Cells 3.33 10^6/uL (4.0-5.20); White Blood Cell 3.7 10^3/uL (4.4-10.8)
[2024-03-02 01:01] VITALS: PULSE 78; RESP 20; O2SAT 94
[2024-03-02 01:15] LABS: Alanine Aminotransferase 13 U/L (7-40); Albumin 3.6 g/dL (3.2-4.8); Alkaline Phosphatase 124 U/L (46-116); Anion Gap 4 (5-15); Aspartate Aminotransferase 25 U/L (13-40); BUN/Creatinine Ratio 13.2 (10.0-20.0); Bilirubin, Total 0.3 mg/dL (0.2-1.0); Blood Urea Nitrogen 9 mg/dL (9-23); Calcium 8.3 mg/dL (8.7-10.4); Carbon Dioxide 29 mmol/L (20-30); Chloride 102 mmol/L (98-107); Potassium 3.4 mmol/L (3.5-5.1); Sodium 135 mmol/L (136-145); Total Protein 6.9 g/dL (5.7-8.2)
[2024-03-02 01:18] LABS: Glucose 46 mg/dL (74-106)
[2024-03-02 01:46] LABS: Urine Bacteria None Seen /hpf (None Seen)
[2024-03-02 01:53] LABS: Urine Blood Negative /uL (Negative); Urine Clarity Clear (Clear); Urine Color Light-Yellow (Yellow); Urine Protein, UAD Negative (Negative); Urine Specific Gravity 1.006 (1.001-1.035); Urine Urobilinogen Normal (Negative); Urine WBC <1 /hpf (0 - 5); Urine pH 5.5 (5.0-9.0)
[2024-03-02 03:22] VITALS: PULSE 86; RESP 21; O2SAT 93
[2024-03-02 04:00] VITALS: BP 101/57; PULSE 86; RESP 21; TEMP 98.7; O2SAT 93
[2024-03-02] MEDS: LEVOTHYROXINE SODIUM 100 MCG TAB PO SCH (05:06)
[2024-03-02 06:53] LABS: Basophils # (auto) 0 10 ^3/uL (0-0.2); Basophils % (auto) 0.4 % (0.0-2.0); Eosinophils # (auto) 0.2 10 ^3/uL (0-0.8); Eosinophils % (auto) 3.9 % (0.0-7.0); Hematocrit 30.1 % (36.0-46.0); Hemoglobin 10.1 g/dL (12.2-16.2); Lymphocytes # (auto) 1.2 10 ^3/uL (0.4-5.4); Lymphocytes % (auto) 28.5 % (10.0-50.0); Mean Corpuscular Hemoglobin 32.5 pg (28.0-32.0); Mean Corpuscular Hgb Conc. 33.7 g/dL (32.0-36.0); Mean Corpuscular Volume 96.4 fL (80.0-100.0); Monocytes # (auto) 0.4 10 ^3/uL (0-1.3); Monocytes % (auto) 9.2 % (0.0-12.0); Neutrophils # (auto) 2.4 10 ^3/uL (1.6-8.6); Red Blood Cells 3.12 10^6/uL (4.0-5.20); Red Cell Distribution Width 16.5 % (11.8-14.3); White Blood Cell 4.2 10^3/uL (4.4-10.8)
[2024-03-02 07:14] LABS: Alanine Aminotransferase 11 U/L (7-40); Albumin 3.5 g/dL (3.2-4.8); Alkaline Phosphatase 122 U/L (46-116); Anion Gap 3 (5-15); BUN/Creatinine Ratio 16.2 (10.0-20.0); Blood Urea Nitrogen 11 mg/dL (9-23); Calcium 8.4 mg/dL (8.7-10.4); Carbon Dioxide 27 mmol/L (20-30); Chloride 103 mmol/L (98-107); Glucose 81 mg/dL (74-106); Sodium 133 mmol/L (136-145)
[2024-03-02 07:15] LABS: Aspartate Aminotransferase 25 U/L (13-40); Bilirubin, Total 0.2 mg/dL (0.2-1.0); Total Protein 6.3 g/dL (5.7-8.2)
[2024-03-02 08:00] VITALS: BP 113/55; PULSE 76; RESP 16; TEMP 98.6; O2SAT 93
[2024-03-02] MEDS: ASPirin 81 mg TAB PO SCH (10:00)
[2024-03-02 12:30] VITALS: BP 129/88; PULSE 91; RESP 17; TEMP 98.1; O2SAT 98
[2024-03-02] MEDS ORDERED: BACLOFEN 10 MG TAB PO PRN (15:00)
[2024-03-02 16:00] VITALS: BP 108/74; PULSE 73; RESP 16; TEMP 97.5; O2SAT 100
[2024-03-02] MEDS ORDERED: MORPHINE SULF 30 mg ER tab PO SCH (22:00)
== END 2024-03-02 18:30 | disposition left against medical advice (07) | DRG 605 ==
LOC: EDBD 17:44 → ER 17:44 → OVERFLOW 03-02 00:10 → CENTRAL 03-02 03:46
PROVIDERS: ADMIT Nurse Practitioner Family; ATTEND Nurse Practitioner Family
DX: S70.01XA Contusion of right hip, initial encounter (principal); J44.89 Other specified chronic obstructive pulmonary disease; R56.9 Unspecified convulsions; F17.210 Nicotine dependence, cigarettes, uncomplicated; E78.5 Hyperlipidemia, unspecified; W01.0XXA Fall on same level from slipping, tripping and stumbling without subsequent striking against object, initial encounter; G89.4 Chronic pain syndrome; Z53.29 Procedure and treatment not carried out because of patient's decision for other reasons; Z88.8 Allergy status to other drugs, medicaments and biological substances; Z91.040 Latex allergy status; Z79.899 Other long term (current) drug therapy; Z79.2 Long term (current) use of antibiotics; Z88.1 Allergy status to other antibiotic agents; Z91.048 Other nonmedicinal substance allergy status; Y93.89 Activity, other specified; Y92.89 Other specified places as the place of occurrence of the external cause; Y99.8 Other external cause status
CPT/HCPCS: 36415; 70450; 72125; 72192; 73590; 73700; 80053; 81001; 82962; 84443; 85025; 96374; 96375; G0378; J2405

== ENCOUNTER 2024-09-03 14:20 | Emergency (ER) | payer OTHER, MEDICAID ==
[~2024-09-03] VITALS: Ht 152.4 cm; Wt 63.0 kg
[2024-09-03 14:28] VITALS: RESP 18
--- NOTE | 2024-09-03 14:28 | ED.PDOC ---
History of Present Illness HPI Comments 49 y/o F brought in by ambulance with PMHX of seizures presents to the ED with CC of s/p seizure. Per EMS, patient was on the way to a dermatology appointment when she had a seizure which lasted 10 minutes. Upon arrival to seen by EMS patient was found to be limp and unresponsive. In route to ED, patient was stating at 82% on room air; patient was placed on 6L O2 via nasal canula and sustained at 96%. Patient smokes, drinks occasionally, and denies illicit drug use. Patient denies hitting her head, headache, or N/V/D. No new symptoms or modifying factors at this time. Time Seen by MD: 14:10 Primary Care Provider: UNKNOWN Reviewed Notes: Nurses Notes, Heel Seat Filler Notes, Medications, Allergies Allergies: Coded Allergies: Vancomycin (Verified Allergy, Intermediate, 04/02/21) Chlorhexidine (Verified Allergy, Unknown, 04/12/17) Clindamycin (Verified Allergy, Unknown, 04/22/21) Fentanyl (Verified Allergy, Unknown, 04/12/17) Fluticasone (Verified Allergy, Unknown, 04/12/17) Latex (Verified Allergy, Unknown, 04/12/17) Uncoded Allergies: TAPE (Allergy, Severe, 03/03/21) PER PATIENT, HAS SEVERE REACTION Home Meds Unable to Obtain Active Prescriptions or Reported Meds Information Source: Patient, Friend, Emergency Med Personnel Mode of Arrival: EMS Severity: Mild Timing: Minutes Duration: Minutes Prehospital treatment: Accucheck Past Medical History PAST MEDICAL HISTORY: Asthma, COPD, High Lipids, Seizures, Thyroid Surgical History: Denies all surgeries CLOTH INSPECTOR History: No Pertinent CLOTH INSPECTOR History Family History Family History: Unobtainable Social History Smoker: Cigarettes, Less Than 1 Pack/Day Alcohol: Occasionally Drugs: Denies Drug Use Lives In: Home Constitutional: denies: chills, diaphoresis, fatigue, fever, malaise, sweats, weakness, others EENTM: denies: blurred vision, double vision, ear bleeding, ear discharge, ear drainage, ear pain, ear ringing, eye pain, eye redness, hearing loss, mouth pain, mouth swelling, nasal discharge, nose bleeding, nose congestion, nose pain, photophobia, tearing, throat pain, throat swelling, voice changes, others Respiratory: denies: cough, hemoptysis, orthopnea, SOB at rest, shortness of breath, SOB with excertion, stridor, wheezing, others Cardiovascular: denies: chest pain, dizzy spells, diaphoresis, Dyspnea on exertion, edema, irregular heart beat, left arm pain, lightheadedness, palpitations, PND, syncope, others Gastrointestinal: denies: abdomen distended, abdominal pain, blood streaked bowels, constipated, diarrhea, dysphagia, difficulty swallowing, hematemesis, melena, nausea, poor appetite, poor fluid intake, rectal bleeding, rectal pain, vomiting, others Genitourinary: denies: abnormal vagina bleeding, burning, dyspareunia, dysuria, flank pain, frequency, hematuria, incontinence, pain, , vagina discharge, urgency, others Neurological: denies: dizziness, fainting, headache, left sided numbness, left sided weakness, numbness, paresthesia, pre-existing deficit, right sided numbness, right sided weakness, seizure, speech problems, tingling, tremors, weakness, others Musculoskeletal: denies: back pain, gout, joint pain, joint swelling, muscle pain, muscle stiffness, neck pain, others Integumetry: denies: bruises, change in color, change in hair/nails, dryness, laceration, lesions, lumps, rash, wounds, others Allergic/Immunocompromised: denies: Difficulty Healing, Frequent Infections, Hives, Itching, others Hematologic/Lymphatic: denies: anemia, blood clots, easy bleeding, easy bruising, swollen glands, others Endocrine: denies: excessive hunger, excessive sweating, excessive thirst, excessive urination, flushing, intolerance to cold, intolerance to heat, unexplained weight gain, unexplained weight loss, others Psychiatric: denies: anxiety, bipolar disorder, depression, hopeless, panic disorder, schizophrenia, sleepless, suicidal, others All Other Systems: Reviewed and Negative Physical Exam General Appearance: Mild Distress HEENT: Normal ENT Inspection, Pharynx Normal, TMs Normal Neck: Full Range of Motion, Non-Tender, Normal, Normal Inspection Respiratory: Chest Non-Tender, Lungs Clear, No Accessory Muscle Use, No Respiratory Distress, Normal Breath Sounds Cardiovascular: No Edema, No JVD, No Murmur, No Gallop, Normal Peripheral Pulses, Regular Rate/Rhythm Breast Exam: Deferred Gastrointestinal: No Organomegaly, Non Tender, No Pulsatile Mass, Normal Bowel Sounds, Soft Genitalia: Deferred Pelvic: Deferred Rectal: Deferred Extremities: No calf tenderness, Normal capillary refill, Normal inspection, Normal range of motion, Non-tender, No pedal edema Musculoskeletal : Apperance: Normal Neurologic: Alert, head of store operations II-XII nml as Tested, No Motor Deficits, Normal Affect, Normal Mood, No Sensory Deficits Cerebellar Function: Normal Reflexes: Normal Skin: Dry, Normal Color, Warm Lymphatic: No Adenopathy Was a procedure done? Was a procedure done?: No Differential Dx Considerations may include: Seizure, generalized weakness X-Ray, Labs, Meds, VS Vital Signs Date Time Temp Pulse Resp B/P (MAP) Pulse Ox O2 Delivery O2 Flow Rate FiO2 09/03/24 14:28 99.1 18 The patient was now stating that she would like to sign out against medical advice The patient was signed out AMA and is going home with her mother. The patient was alert and oriented and able to answer all questions appropriately. The patient has been signed out Time of 1ST Reevaluation: 14:40 Reevaluation 1ST: Unchanged Patient Education/Counseling: Diagnosis, Treatment, Prognosis Family Education/Counseling: Diagnosis, Treatment, Prognosis Departure 1 Departure Time of Disposition: 14:38 Impression: Primary Impression: Arnold-Chiari malformation Additional Impression: Breakthrough seizure Disposition: 07 LEFT AGAINST MEDICAL ADVICE Condition: Fair e-Prescriptions Unable to Obtain Active Prescriptions or Reported Meds Critical Care Note Critical Care Time?: No Stability Stability form required: No Heart Score Heart Score: Heart Score Response (Comments) Value History N/A 0 EKG N/A 0 Age N/A 0 Risk Factors N/A 0 Troponin N/A 0 Total 0 I personally scribed for LUI SMITH MD ([email or web address]) on 09/03/24 at 14:28. Electronically submitted by Daniella Barron ([email or web address]). LUI SMITH MD Sep 03, 2024 14:28
== END 2024-09-03 14:39 | disposition left against medical advice (07) ==
LOC: ER 14:20 → EDUNIT# 14:20 → EDBD 14:20 → ER 14:39
DX: G93.5 Compression of brain (principal); R56.9 Unspecified convulsions; J44.9 Chronic obstructive pulmonary disease, unspecified; E78.5 Hyperlipidemia, unspecified; E03.9 Hypothyroidism, unspecified; F17.210 Nicotine dependence, cigarettes, uncomplicated; Z88.1 Allergy status to other antibiotic agents; Z88.5 Allergy status to narcotic agent; Z88.8 Allergy status to other drugs, medicaments and biological substances; Z91.040 Latex allergy status